=== PATIENT | male | born 1945 | race Caucasian/White ===

== ENCOUNTER → 2019-11-17 10:43 | Outpatient (BNVA) | payer MEDICARE, OTHER, SELFPAY | PROVIDERS: Family Provider Family Medicine; PCP Family Medicine; Referring Provider Nurse Practitioner Family; Visit Provider Orthopaedic Surgery | DX: M25.552 Pain in left hip (principal); M25.551 Pain in right hip | CPT/HCPCS: 73522 ==

== ENCOUNTER 2020-01-11 11:21 | Outpatient (CLI) | payer MEDICARE, OTHER, SELFPAY ==
--- NOTE | 2020-01-11 11:30 | CT_ITS ---
WS: [id number] CT CHEST, ABDOMEN AND PELVIS WITH CONTRAST HISTORY: RESTAGING, MALIGNANT NEOPLASM OF THE PENIS TECHNIQUE: Contiguous 5 mm axial imaging performed through the chest, abdomen and pelvis with IV cont rast, oral contrast has been provided. Coronal and sagittal reformats chest. Coronal and sagittal ref ormats through the abdomen and pelvis. All CT scans at [facility] use at least one of the se dose optimization techniques: automated exposure control; mA and/or kV adjustment per patient size (includes targeted exams where dose is matched to clinical indication); or iterative reconstruction. CONTRAST: Omnipaque 300; 95 mL IV. DLP: 3383.93 mGycm COMPARISON: 04/21/[address]: Mild peripheral interstitial thickening throughout both lungs. No pneumonia. Normal vascula ture. Mild bronchiectasis medial RIGHT upper lobe. No pleural effusion or pericardial effusion. Heart size is normal. Moderate coronary artery atherosclerosis. No mediastinal or hilar adenopathy. Abdomen CT: Hepatic steatosis. No hepatic mass. Normal vasculature. Gallbladder, spleen, pancreas and adrenal glands are negative. No bile duct dilatation. Very mild bilateral perinephric stranding. No mass or obstruction. Infrarenal abdominal aortic aneurysm measures 3.5 cm. There is a moderate amount of thrombus in the posterior aneurysm similar to the prior study. No significant progression of the aneurysm. No adenopathy or fluid in the abdomen. The appendix is visualized and normal. No GI tract obstruction . Pelvic CT: Garrison catheter present in the urinary bladder. No ascites within the pelvis. No adenopathy . No inguinal lymph nodes. Numerous surgical clips are noted at the LEFT groin and postsurgical ochoa es. Urinary bladder is not distended. No osteoblastic or osteolytic bone disease. Severe bilateral hip joint arthritis. Complete loss of the joint space on the RIGHT with remodeling o f the femoral head and neck and large subchondral cystic changes. Similar osteoarthritic changes on t he LEFT but to a lesser extent. No osteoblastic or osteolytic disease. L4 anterolisthesis by 10 mm due to bilateral pars defects. Mild RIGHT convex curvature thoracic spine . Remote healed rib fractures in the mid lateral LEFT thorax. CT/CT chest abd pel w con* IMPRESSION: 1. No evidence of metastatic disease to the chest, abdomen or pelvis. 2. Very mild interstitial thickening throughout both lungs. No pneumonia. 3. Stable infrarenal abdominal aortic aneurysm at 3.5 cm with intraluminal thr ombus. 4. Severe bilateral hip joint arthritis, RIGHT greater than LEFT. 5. L4 anterolisthesis by 10 mm with bilateral pars defects.
[2020-01-11] MEDS: iohexol 300 mg/mL 50 mL Btl PO ×2 (11:54→13:09)
[2020-01-11 13:16] LABS: Blood Urea Nitrogen 15 mg/dL (8-23)
[2020-01-11] MEDS: iohexol 300 mg/mL 100 mL Btl IV (13:27)
== END 2020-01-11 11:22 | disposition home or self-care (01) ==
LOC: RADWPI 11:24
PROVIDERS: Family Provider Family Medicine; PCP Family Medicine; Visit Provider Radiology Radiation Oncology
DX: C60.9 Malignant neoplasm of penis, unspecified (principal); I71.4 Abdominal aortic aneurysm, without rupture; M16.0 Bilateral primary osteoarthritis of hip
CPT/HCPCS: 71260; 74177; 82565; 84520; Q9967

== ENCOUNTER 2020-01-15 09:40 | Outpatient (CLI) | payer MEDICARE, OTHER, SELFPAY ==
--- NOTE | 2020-01-15 12:38 | ONCRAD EPV_ITS ---
Radiation Oncology Established Patient Visit Patient: Iglesia Hannah MR#: [id number] : 1945 Age: 75 Sex: Male Dictated by: Dr. Srinivasa Daley Date of Service: 01/15/2020 Referring Physician(s) : Dr. Abel Moncada Diagnosis: C60.2 - Malignant neoplasm of body of penis, Diagnosed 01/25/2017 (Active) C60.9 - Malignant neoplasm of penis, unspecified, Diagnosed 10/09/2016 (Active) Stage IV, T3, pN3, M0 Radiotherapy to Date: Course: C1, Treatment Site: PENECTOMY SITE, Ref. ID: PENECTOMY SITE, Energy: 9E, Dose/Fx (cGy): 180, #Fx: , Dose Correction (cGy): 0, Total Dose (cGy): 4,500, Start Date: 02/03/2017, End Date: 03/12/2017, Elapsed Days: 37 Treatment Site: PEL PTV46.8, Ref. ID: PELVIS PTV46.8, Energy: 6X, Dose/Fx (cGy): 180, #Fx: , Dose Correction (cGy): 0, Total Dose (cGy): 4,680, Start Date: 02/03/2017, End Date: 03/16/2017, Elapsed Days: 41 Treatment Site: PEL PTV60.8, Ref. 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 In follow up today, the patient reports that he has a permanent Garrison catheter changed monthly by his urologist, no fevers/chills, no abdominal pain, no diarrhea, and no nausea/vomiting. His most recent CT scan of the chest/abd/pelvis (01/11/20) is negative for radiographic concern for metastasis or recurrence. Current Medications: Atorvastatin Calcium, c 1000, hydrocodone-Acetaminophen, levothyroxine Sodium, lisinopril, meloxicam, metoprolol Succinate ER, omega-3 Fatty Acids, proscar, tamsulosin HCl. Allergies: Diclofenac and Chantix Starting Month Juanjo. Current Complaints / Review of Systems: Constitutional - Complains of moderate fatigue. Denies lack of appetite, fever, night sweats and change in weight. Eyes - Complains of blurred vision in the right eye related to a cataract. Denies double vision. ENMT - Complains of tinnitus. Denies dysphagia, ear pain, mouth dryness, stomatitis and altered taste. Neck - Denies neck pain. Integumentary - Denies rash. Cardiovascular - Denies arrhythmias, chest pain and edema. Respiratory - Complains of cough occasionally. Complains of dyspnea associated with normal activity. Complains of wheezing and happens with laying down at night. Gastrointestinal - Denies abdominal pain, constipation, diarrhea, heartburn / dyspepsia, melena / GI bleeding, nausea and vomiting. Genitourinary (M) - Complains of hematuria occasionally which is specks. Has a permanent catheter. Musculoskeletal - Complains of joint pain both hips, lower back, and hands and muscle weakness in the lower extremity. Denies bone pain. Neurologic - Complains of abnormal gait due to hip pain. Denies dizziness and headaches. Endocrine - Denies diabetes and thyroid disease. Hematologic/Lymphatic - Denies tender or enlarged lymph nodes.. Vital Signs: Performed on 01/15/2020 10:55 AM BMI - 36.583 kg/m2 (high), Height - 71.50 in, Weight - 266.0 lbs, Temperature - 96.8 f, Pulse - 75, Respiration - 20, O2 Sat - 96 %, Pain - 5 and BP - 104/ 69 mm(hg). Physical Exam: General: Alert and oriented x 3. No acute distress. HEENT: Normocephalic, atraumatic. Extraocular Movements Intact: Pupils Equal, Round, Sclerae anicteric. NECK: Supple without supraclavicular or jugular lymphadenopathy. LUNGS: Clear to auscultation bilaterally without rales, rhonchi or wheeze. HEART: Regular rate and rhythm, normal S1 and S2 without murmur, gallop or rub. MUSCULOSKELETAL: No tenderness or percussion pain over the axial skeleton, scapulae or pelvis. ABDOMEN: Soft, nontender, nondistended without masses or organomegaly. Bowell sounds are present. Lymphatics: No inguinal adenopathy. NEUROLOGIC: Cranial nerves II ???XII are grossly intact. Normal sensation, strength 5/5 in all extremities, normal gait, no ataxia. Performance Status: 2 - Ambulatory/capable of all self-care, unable to perform any work activities. Up and about more than 50% of waking hours. (ECOG) Lab: None pending. Pathology: Primary, c60.2 - malignant neoplasm of body of penis, Diagnosed 01/25/2017 (active) and Primary, c60.9 - malignant neoplasm of penis, unspecified, Diagnosed 10/09/2016 (active) stage iv, t3, pn3, m0. 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 The patient is nearly three years out from therapy and he has no current clinical or radiographic concerns for disease recurrence or metastasis. His last CT of the chest, abd, pelvis was completed 01/11/2020. Plan, follow up in 6 months for repeat history and physical exam. Future surveillance imaging to be done as clinically prudent. Signed by: 01/15/2020 12:37:52 PM <<Signature on File>> CPT Code: CPT Code:
== END 2020-01-15 09:41 | disposition home or self-care (01) ==
LOC: ONCMED 09:45
PROVIDERS: Family Provider Family Medicine; PCP Family Medicine; Visit Provider Radiology Radiation Oncology
DX: C60.2 Malignant neoplasm of body of penis (principal); J44.9 Chronic obstructive pulmonary disease, unspecified; E78.00 Pure hypercholesterolemia, unspecified; I10 Essential (primary) hypertension; M19.90 Unspecified osteoarthritis, unspecified site
CPT/HCPCS: 99213; G0463

== ENCOUNTER 2020-01-30 09:09 | Outpatient (CLI) | payer MEDICARE, OTHER, SELFPAY ==
--- NOTE | 2020-01-30 09:50 | NMCV_ITS ---
NM abhay perf SPECT r/s* [id number] Iglesia Hannah Age: 75 Gender: M : 1945 Exam Date: 01/30/2020 10:19 Ordering Phys: Ming Flores DO Technologist: JONATHON Fan Exam Location: [facility] Indications: SOB, CAD STRESS TEST Please see separate stress test report in [facility] for full findings IMAGE PROTOCOL Rest/Stress 1 Lexiscan Day Radiopharmaceutical Dose (mCi) Administration Site Administered by Rest: Tc-99m 10.3 IV JONATHON Barrera Sestamibi Stress:Tc-99m 32.9 IV JONATHON Fan Sestamikvng Rest: 30-Jan-2020 60 Discovery 630 Stress: 30-Jan-2020 45 Discovery 630 0.4mg Lexiscan. Supine position only as patient was unable to lay prone. SPECT RESULTS Technical Quality: Good Raw Data Analysis: Normal Image Corrections: No attenuation or motion correction applied Summed Stress Score: 11 Summed Rest Score: 15 Summed Difference Score: 0 PERFUSION FINDINGS Moderate area of moderate to severely decreased tracer uptake in the basal mid and apical inferior, basal and mid inferolateral, apical lateral and LV apex. No significant reversibility was noted in these regions addressed. FUNCTIONAL RESULTS (calculated via Gated SPECT) Stress Image LV EF (%): 51 Stress EDV (mL):182 TID: 1.16 Stress ESV (mL):90 FUNCTIONAL FINDINGS: 1. Myocardial perfusion imaging revealing moderate area of persistent decreases uptake in the inferior, inferolateral and apical regions, suggestive of myocardial scarring in the distribution of the right coronary artery/circumflex artery. 2. Normal LV ejection fraction 51%. 3. LV wall motion analysis revealing diffuse hypokinesia of the LV apex. 4. Mildly dilated LV cavity with an end-systolic volume of 90 mL. 5. Slightly elevated transient ischemic dilatation ratio of 1.16, may suggest endocardial ischemia. But the positive predictive value this finding is limited. Clinical correlation is recommended IMPRESSIONS Dr Lidya Rojas MD [facility] (Electronically Signed) Final Date: 30 January 2020 13:58 S
[2020-01-30 09:51] VITALS: BMI 37.2
--- NOTE | 2020-01-30 11:00 | ECG_ITS ---
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 Interpretive Statements NAME OF STUDY: LEXISCAN SESTAMIBI STRESS TEST INDICATION: Chest Pain, PROCEDURE: At the baseline, the EKG revealed normal sinus rhythm with first-degree AV block. Possible old inferolateral myocardial infarction. The baseline blood pressure was 125/77 mm Hg with a heart rate of 76 beats/min. Lexiscan was infused over a period of 20 seconds. A total of 0.4 milligrams of Lexiscan was infused. The stress phase was continued for a total of 5 minutes. Heart rate at the end of the stress phase was 80 with a blood pressure 141/76. The EKG at the peak infusion revealed occasional PVCs with no other significant changes . Sestamibi was injected 20 seconds after the Lexiscan infusion. Blood pressure at the end of the recovery phase was 128/76 with a heart rate of 71 per minute. CONCLUSION: 1. No significant EKG changes with the LexiScan infusion 2. No LexiScan induced chest pain .occasional Lexiscan induced with PVCs were noted . 3. Normal blood pressure and heart rate response 4. Sestamibi/sestamibi perfusion scan pending; see separate report. Electronically Signed On 01-30-2020 13:40:26 CDT by Lidya Rojas M.D. [id number]
[2020-01-30 11:26] VITALS: BP 117/84; PULSE 80
[2020-01-30] MEDS: regadenoson 0.4 Mg/5 ml Syringe IVP (11:26)
== END 2020-01-30 09:10 | disposition home or self-care (01) ==
PROVIDERS: Family Provider Family Medicine; PCP Family Medicine; Visit Provider Internal Medicine Cardiovascular Disease
DX: R06.02 Shortness of breath (principal); R07.9 Chest pain, unspecified; I25.10 Atherosclerotic heart disease of native coronary artery without angina pectoris
CPT/HCPCS: 78452; 93017; A9500; J2785

== ENCOUNTER → 2020-03-22 08:53 | Outpatient (BNVA) | payer MEDICARE, OTHER, SELFPAY | PROVIDERS: PCP Family Medicine; Visit Provider Internal Medicine | DX: Z11.59 Encounter for screening for other viral diseases (principal) | CPT/HCPCS: 87635 ==

== ENCOUNTER 2020-03-25 13:19 | Observation (INO) | payer MEDICARE, OTHER, SELFPAY ==
[2020-03-21 10:24] VITALS: BMI 37.2
--- NOTE | 2020-03-21 10:31 | ECG_ITS ---
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 Measurements Intervals [place] Rate: 69 P: 37 OK: 240 QRS: 49 QRSD: 86 T: 45 QT: 414 QTc: 444 Interpretive Statements SINUS RHYTHM WITH FIRST DEGREE AV BLOCK POSSIBLE ANTERIOR MYOCARDIAL INFARCTION [30 ms Q WAVE IN V3/V4, OR R < 0.2 mV IN V4], OF INDETERMINATE AGE POSSIBLE INFERIOR MYOCARDIAL INFARCTION [30 ms Q WAVE IN II/aVF], PROBABLY OLD Compared to ECG 10/24/2018 16:48:31 No significant changes Electronically Signed On 03-21-2020 20:24:54 CDT by Heidi Cooney M.D. [id number]
[2020-03-21 11:06] LABS: Basophils # 0.1 10^3/uL (0.0-0.1); Basophils % 0.6 %; Eosinophils # 0.1 10^3/uL (0.0-0.8); Eosinophils % 1.6 %; Hematocrit 41.1 % (42.0-52.0); Hemoglobin 13.8 g/dL (11.7-16.6); Lymphocytes % 24.4 %; Mean Corpuscular HGB Conc 33.6 g/dL (30.0-36.0); Mean Corpuscular Hemoglobin 30.9 pg (28.0-34.0); Mean Corpuscular Volume 92.2 fL (80-94); Mean Platelet Volume 11.2 fL (7.4-10.4); Monocytes # 0.8 10^3/uL (0.2-0.9); Monocytes % 10.3 %; Neutrophils # 5.11 10^3/uL (1.8-7.7); Neutrophils % 62.5 %; Nucleated Red Blood Cells % 0 %; Platelet Count 114 10^3/cmm (130-400); Red Blood Count 4.46 10^6/uL (4.1-5.3); Red Cell Distribution Width 15.2 % (12.1-15.1); White Blood Count 8.2 10^3/uL (4.0-10.0)
--- NOTE | 2020-03-21 11:08 | ANES.PREANE2 ---
Pre-Anesthetic Assessment Pre-Anesthetic Assessment: Height/Weight: Height 1.8 m Weight 121.109 kg Preop Diagnosis: Osteoarthritis Proposed Procedure: Operation Date: 03/25/20 09:30 Proposed Procedures p Total Hip Arthroplasty 90526 M16.11(Right) - Caleb Reynaga MD Familial anesthetic complications: None Social: Social History: Tobacco and No alcohol Exam: Pre-Anes Outpt Exam: alert, oriented x 3, clear to auscultation bilaterally and regular rate & rhythm Airway: Cervical ROM: WNL MP: 2 Dentition: Other (missing teeth (poor dentition)) Pulmonary: Pulmonary: COPD (2 L NC prn - couple times a week) CV/HEM: CV/HEM: CAD (2 stents - last one placed jul 2010), HTN and WI (X3) Metabolic: Metabolic: Hyperlipidemia and Morbid obesity Musc/skel: Musc/skel: OA/DJD Neuropsych: Neuropsych: Neuropathy Anesthetic Plan: ASA status: 3 Anesthesia: General Risk of > 500 ml blood loss (7ml/kg in children): No PFSH Anesthesia PFSH: Medical History Chronic indwelling Garrison catheter Coronary artery disease History of penile cancer Hypertension Hyperthyroidism Other urethral stricture, male, meatal Surgical History History of penectomy S/P tonsillectomy Family History Father Cancer Colon Mother Cancer Colon Social History Smoking and tobacco status: current every day smoker Alcohol intake: never Marital status: Current occupational status: retired Data Anesthesia CBC & Chem 7: 03/21/20 10:50 Other Labs: Laboratory Results - last 48 hr 03/21/20 10:50 WBC 8.2 RBC 4.46 Hgb 13.8 Hct 41.1 L MCV 92.2 MCH 30.9 MCHC 33.6 RDW 15.2 H Plt Count 114 L MPV 11.2 H Neut % (Auto) 62.5 Lymph % (Auto) 24.4 Turner % (Auto) 10.3 Eos % (Auto) 1.6 Baso % (Auto) 0.6 Neut # (Auto) 5.11 Lymph # (Auto) 2.0 Turner # (Auto) 0.8 Eos # (Auto) 0.1 Baso # (Auto) 0.1 Nucleated RBC % (auto) 0 Nucleated RBCs # 0.0 Cardiac Studies: No Data to Display
[2020-03-25] VITALS (22 sets, daily range): BP systolic 101–140; BP diastolic 68–88; PULSE 57–82; RESP 12–97; TEMP 36.1–37.1; O2SAT 89–98
[2020-03-25] MEDS: sodium chloride 0.9% 1,000 ML 30 ML IV (07:40)
--- NOTE | 2020-03-25 07:59 | P.ANESUD_ITS ---
Pre-Anesthetic Update Pre-Anesthetic Assessment: Date of Surgery/Procedure: 03/25/20 Preop Precious gnosis: Osteoarthritis right hip Proposed Procedure: Operation Date: 03/25/20 09:30 Proposed Procedures p Total Hip Arthroplasty 05399 M16.11(Right) - Caleb Reynaga MD Any changes to Pre-Anesthetic Assessment?: No Last Intake: Intake Last Liquid Date 03/24/20 Last Liquid Time 22:30 Last Solid Date 03/24/20 Last Solid Time 22:30 Vitals: Pulse Rate 82 03/25/20 07:26 Pulse Rhythm 03/25/20 07:26 Pulse Strength 3+ Normal 03/25/20 07:26 Respiratory Rate 18 03/25/20 07:26 Blood Pressure 125/82 03/25/20 07:26 Blood Pressure Marcia n 96 03/25/20 07:26 Pulse Oximetry 98 03/25/20 07:26 Oxygen Delivery Me thod 03/25/20 07:26 Exam: Pre-Anes Outpt Exam: alert, oriented x 3, clear to auscultation bilaterally and regular rate & rhythm Cardiac Studies: No Data to Display
--- NOTE | 2020-03-25 10:02 | W.PM.OPSUD ---
Surgery/Procedure H&P Update DATE OF PROCEDURE: March 25, 2020 DATE H&P PERFORMED: 03/14/20 PREOP DIAGNOSIS: Osteoarthritis right hip PLANNED PROCEDURE: Operation Date: 03/25/20 09:30 Proposed Procedures p Total Hip Arthroplasty 22724 M16.11(Right) - Caleb Reynaga MD
[2020-03-25] MEDS: tranexamic acid 1,000 mg/10mL SDV 1000 MG IRRIGATION (10:53)
--- NOTE | 2020-03-25 12:05 | XR_ITS ---
WS: [id number] EXAM: RIGHT HIP: AP VIEW DATE OF EXAMINATION: 03/25/2020, 1214 hours COMPARISON: AP pelvis and right hip examination from 11/17/2019. HISTORY: Patient is 75 years old with new right total hip arthroplasty. FINDINGS: Since the earlier examination there has been interval placement of a noncemented 2 component right to cherise hip arthroplasty. No hardware complication is demonstrated. No bony malalignment. No acute bony a bnormality seen. Air in the soft tissues correlates with an open procedure. XR/XR hip RT 1V wo/w pel [id number] IMPRESSION: New right total hip arthroplasty without acute abnormality.
--- NOTE | 2020-03-25 12:06 | P.OP_ITS ---
Operative Report Date of procedure: March 25, 2020 Pre-op Diagnosis: Osteoarthritis right hip Post-op diagnosis: same Post-op Findings: Same Procedure Done: Right total hip arthroplasty Implants: 1) Houghton 58 mm ADM acetabular shell 2) Size 10 Houghton 132 degree neck angle SecureFit Max stem 3} 28 mm standard femoral head 4} Restorationa ADM X3 insert Pathology: none sent Surgeon: Caleb Reynaga Anesthesia: General Estimated blood loss (mL): 200 Complications: None Findings: Patient had severe end-stage osteoarthritis of the right hip Condition: stable Disposition: PACU Procedure: The patient was taken to the operating room and anesthesia provided by the anesthesia service. The patient was placed in the lateral position on a beanbag. A timeout was performed. The patient was draped in the usual fashion. A 15 cm long incision was made beginning just proximal to the greater trochanter and extending posteriorly to a point just distal to the trochanter on the posterior border of the trochanter. Dissection was carried down with elect rocautery through the subcutaneous fat to the fascia jason which was divided proximally and distally with curved scissors. The anterior two thirds of the gluteus medius and minimus were elevated off the hip with electrocautery. The capsule was divided in a H-like fashion. The hip was dislocated and a neck cut made just above the level of the lesser trochanter. Exposure of the acetabulum was facilitated with the acetabular retractors. Remnants of labrum and peripheral osteophytes were removed with electrocautery and a rongeur. A reamer 2 mm under the size the femoral head was utilized to ream medially to the base of the palm and are. Reaming was then increased in 1 mm intervals until a healthy rim a trabecular bone was encountered. A trial ADM cup was placed and its position marked with electrocautery In the acetabulum. A final was press-fit into place. Attention was then focused on the femur. Sequential reaming was done under power until cortical chatter was encountered. Broaching was then accomplished until a stable broach size was obtained. A trial reduction with the head and neck provided excellent stability. The wound was irrigated with saline and antibiotic solution. The final Houghton SecureFit Max stem was press-fit into place. The femoral head was placed and the hip was reduced. The hip was brought through range of motion and found to be free of impingement and stable. The anterior capsule was reapproximated with 1 Ethibond. The gluteus medius and minimus were repaired through bone with 5 Ethibond and reinforced with 1 Ethibond. The fascial jason was closed with 1 Ethibond. The subcutaneous tissue closed with 2-0 Vicryl. The skin was closed with skin kateryna. A sterile dressing was applied. The patient was taken to the recovery room in an a bduction pillow in stable condition.
--- NOTE | 2020-03-25 12:26 | PM.PACU ---
PACU note Post-Anesthesia Exam: awake and vital signs stable Disposition: admitted
[2020-03-25] MEDS: fentaNYL 50 mcg/mL INJ 2mL IVP ×2 (13:01→13:06)
[2020-03-25] MEDS: HYDROcodone-acetaminophen 7.5-325 mg Tablet 1 TAB PO ×2 (15:22→22:00)
[2020-03-25] MEDS: sodium chloride 0.9% 1,000 ML 100 ML IV (15:22)
[2020-03-25] MEDS: chlorhexidine gluconate 0.12% Btl 473 mL 30 ML MUCOUS MEM ×2 (15:23→22:01)
[2020-03-25] MEDS: sennosides-docusate Tablet 2 TAB PO (17:06)
[2020-03-25] MEDS: calcium carbonate 500 mg Chew Tablet 1000 MG PO (17:07)
[2020-03-25] MEDS: mupirocin oint 22 gm 1 APPLIC TOPICAL (17:07)
[2020-03-25] MEDS: iron polysaccharide complex 150 mg Capsule PO (17:08)
[2020-03-26] VITALS (12 sets, daily range): BP systolic 104–143; BP diastolic 64–91; PULSE 69–104; RESP 18–19; TEMP 36.8–39.2; O2SAT 92–97
[2020-03-26] MEDS: sodium chloride 0.9% 1,000 ML 100 ML IV (01:39)
[2020-03-26] MEDS: oxyCODONE-APAP 5-325 mg Tablet 1 TAB PO ×2 (01:55→08:24)
[2020-03-26 05:26] LABS: Hemoglobin 12.4 g/dL (11.7-16.6)
[2020-03-26] MEDS: HYDROcodone-acetaminophen 7.5-325 mg Tablet 1 TAB PO ×2 (06:01→17:59)
[2020-03-26] MEDS: aspirin 81 mg EC Tablet PO (08:25)
[2020-03-26] MEDS: omega-3 fatty acids 1,000 mg Capsule 1000 MG PO (08:25)
[2020-03-26] MEDS: finasteride 5 mg Tablet PO (08:25)
[2020-03-26] MEDS: calcium carbonate 500 mg Chew Tablet 1000 MG PO ×2 (08:25→17:43)
[2020-03-26] MEDS: atorvastatin 40 mg Tablet PO (08:25)
[2020-03-26] MEDS: metoprolol tartrate 50 mg Tablet PO (08:26)
[2020-03-26] MEDS: mupirocin oint 22 gm 1 APPLIC TOPICAL ×2 (08:26→17:50)
[2020-03-26] MEDS: sennosides-docusate Tablet 2 TAB PO ×2 (08:26→17:43)
[2020-03-26] MEDS: tamsulosin 0.4 mg Capsule PO (08:27)
[2020-03-26] MEDS: iron polysaccharide complex 150 mg Capsule PO ×2 (08:27→17:43)
[2020-03-26] MEDS: mupirocin oint 22 gm 1 APPLIC NASAL ×2 (08:27→18:24)
[2020-03-26] MEDS: cholecalciferol (vitamin D3) 1,000 unit Tablet 1000 UNIT PO (08:27)
[2020-03-26] MEDS: multivitamin therapeutic Tablet 1 TAB PO (08:27)
[2020-03-26] MEDS: chlorhexidine gluconate 0.12% Btl 473 mL 30 ML MUCOUS MEM ×3 (08:28→17:45)
[2020-03-26] MEDS: morphine 4 mg/mL SDV 1 mL 2 MG IVP (11:56)
--- NOTE | 2020-03-26 12:55 | ANE.PACU2 ---
Inpatient post-anesthesia follow up: Airway intact: Yes Vital signs: Temperature 98.3 F Pulse Rate 84 Respiratory Rate 18 Blood Pressure 104/64 Pulse Oximetry 94 Oxygen Delivery Me thod [ Room Air Current Rate & Del loren] Oxygen Delivery Me thod Nasal Cannula Oxygen Flow Rate 2 Fraction of Inspir ed Oxygen Hydration adequate: Yes Nausea and vomiting: No Pain level: 5 Mental status: Baseline
--- NOTE | 2020-03-26 14:44 | P.PN_ITS ---
Subjective Subjective: Interval history: Patient reports pain is better. Back pain improved when out of bed. Vitals/I&O/Wt Last Vital Signs Temp 98.3 F 03/26/20 11:22 Pulse 84 03/26/20 11:22 Resp 18 03/26/20 11:56 BP 104/64 03/26/20 11:22 Pulse Ox 94 03/26/20 11:56 03/25/20 03/26/20 03/26/20 22:59 06:59 14:59 Intake Total 50 / 1410 1050 / 2460 770 / 770 Output Total 1750 / 2800 1875 / 4675 Balance -1700 / -1390 -825 / -2215 770 / 770 Physical Exam Narrative: EXAM NARRATIVE: Able to walk to the door and back this morning. R ight hip dressing clean and dry. Data : 03/26/20 04:35 A&P Assessment and plan (1) Status post right hip replacement: Patient had a larger male and progress with therapy a bit slower. Will discharge home when fully ambulatory. Possibly tonight or more likely tomorrow morning Status: Acute (2) Osteoarthritis of right hip: Status: Acute Attestations Medical Necessity Statement*: Patient with insufficient amatory ability for discharge home at present time Coding Level of Care Code Acute Service Mechanic for Salena Epstein Diagnoses Status post right hip replacement Z96.641 Osteoarthritis of right hip M16.11
[2020-03-26] MEDS: acetaminophen 325 mg Tablet 650 MG PO (20:46)
[2020-03-27] MEDS: chlorhexidine gluconate 0.12% Btl 473 mL 30 ML MUCOUS MEM ×3 (00:01→16:02)
[2020-03-27] MEDS: HYDROcodone-acetaminophen 7.5-325 mg Tablet 1 TAB PO ×2 (02:08→12:30)
[2020-03-27 03:00] VITALS: BP 120/76; PULSE 81; RESP 18; TEMP 37.5; O2SAT 91
[2020-03-27 07:00] VITALS: BP 128/76; PULSE 98; RESP 18; TEMP 37.3; O2SAT 93
[2020-03-27 08:32] VITALS: PULSE 75; RESP 18; O2SAT 94
--- NOTE | 2020-03-27 10:00 | PC.NURSE ---
Methenamine not administered due to home med not available. Pt's took meds home with her.
[2020-03-27] MEDS: calcium carbonate 500 mg Chew Tablet 1000 MG PO (10:24)
[2020-03-27] MEDS: tamsulosin 0.4 mg Capsule PO (10:25)
[2020-03-27] MEDS: finasteride 5 mg Tablet PO (10:25)
[2020-03-27] MEDS: sennosides-docusate Tablet 2 TAB PO (10:25)
[2020-03-27] MEDS: atorvastatin 40 mg Tablet PO (10:25)
[2020-03-27] MEDS: omega-3 fatty acids 1,000 mg Capsule 1000 MG PO (10:26)
[2020-03-27] MEDS: aspirin 81 mg EC Tablet PO (10:26)
[2020-03-27] MEDS: cholecalciferol (vitamin D3) 1,000 unit Tablet 1000 UNIT PO (10:26)
[2020-03-27] MEDS: metoprolol tartrate 50 mg Tablet PO (10:26)
[2020-03-27] MEDS: multivitamin therapeutic Tablet 1 TAB PO (10:26)
[2020-03-27] MEDS: iron polysaccharide complex 150 mg Capsule PO (10:26)
[2020-03-27 11:00] VITALS: BP 126/74; PULSE 78; RESP 20; TEMP 37.1; O2SAT 98
[2020-03-27] MEDS: mupirocin oint 22 gm 1 APPLIC NASAL (12:32)
--- NOTE | 2020-03-27 13:21 | PM.DCS ---
Discharge Providers Date of Admission: 03/25/20 13:19 Date of Discharge: March 27, 2020 Attending Provider at Admission: Caleb Reynaga MD Attending Provider at Discharge: Caleb Reynaga MD Primary Care Provider: Ming Flores DO Diagnoses at Discharge Discharge Diagnosis (1) Status post right hip replacement: Status: Acute (2) Osteoarthritis of right hip: Status: Acute Reason for Visit Reason for Visit: Primary osteoarthritis of right hip Hospital Course Hospital Course: Mr. Hannah is a 75-year-old male with end-stage osteoarthritis of both hips admitted for an elective right total hip arthroplasty. Postoperatively he was slower with therapy attributable to his open weight and severity of osteoarthritis in both hips. He made steady progress and by the second postoperative day was ambulating 70 feet and felt ready for discharge. He is managed with aspirin and sequential compression dressings for DVT prophylaxis. Physical Exam Narrative: EXAM NARRATIVE: On the day of discharge the hip incision was clean. The incision was free of drainage. They had no particular swelling about the thigh or distal. No distal neurovascular deficits were noted. Discharge Data Data Completed and Pending: Completed Studies During Hospitalization Category Date Time Status XR hip RT 1V wo/w pel [id number] Routine Exams 03/25/20 12:05 Completed Vitals: Last Vital Signs Temp 98.7 F 03/27/20 11:00 Pulse 78 03/27/20 11:00 Resp 20 H 03/27/20 11:00 BP 126/74 03/27/20 11:00 Pulse Ox 98 03/27/20 11:00 Discharge Plan Discharge Patient Disposition: Home Condition: Stable Prescriptions: New oxycodone-acetaminophen 5-325 mg Tablet 1 tab PO Q4H PRN (Reason: Severe Pain) Qty: 40 RF: 0 Continued finasteride 5 mg tablet 5 mg PO DAILY RF: 0 cholecalciferol (vitamin D3) 2,000 unit tablet 2,000 unit PO DAILY RF: 0 atorvastatin 40 mg tablet 40 mg PO DAILY RF: 0 tamsulosin 0.4 mg capsule 0.4 mg PO DAILY RF: 0 omega-3 fatty acids 1,000 mg capsule 1,000 mg PO DAILY RF: 0 aspirin 81 mg tablet,delayed release (DR/EC) 81 mg PO DAILY RF: 0 hydrocodone-acetaminophen [[place]] 7.5-325 mg tablet 1 tab PO Q6H PRN (Reason: pain) 14 Days Qty: 40 RF: 0 methenamine hippurate 1 gram tablet 1 gm PO BID Qty: 60 RF: 12 mupirocin 2 % ointment 1 applic TOPICAL BID Qty: 22 RF: 0 meloxicam 15 mg Tablet 15 mg PO DAILY RF: 0 metoprolol tartrate 50 mg Tablet 50 mg PO DAILY RF: 0 Discharge Orders: Discharge Order (Routine); Ordered 03/27/20 Ordered By: Caleb Reynaga Other Ambulatory Orders: DME: Walker (Order) Location: None Selected Ordered By: Caleb Reynaga Referrals: [facility] ([facility]) [Outside] Discharge Diet: Advance as tolerated Discharge Activity: Use walker/crutches as instructed Activity Restrictions/Additional Instructions: May shower once incisions completely free of drainage. Discontinue right hip dressing in 24-48 hours. Replaced dressings as needed. Take Celebrex twice a day for the next 15 days for pain , discontinue other anti-inflammatories take oxycodone for breakthrough pain. Exercises per home health physical therapy. May discontinue abduction pillow Discharge Attestations Time Spent in Discharge Care*: other Quality Metrics Clinical Quality Measures During this hospital stay, did patient experience: None Coding Level of Care Code Acute Atomic Process Engineer for Salena Epstein Diagnoses Status post right hip replacement Z96.641 Osteoarthritis of right hip M16.11
--- NOTE | 2020-03-27 14:05 | PC.RESP ---
Smoking Cessation information sent to patient.
[2020-03-27 15:00] VITALS: BP 124/76; PULSE 64; RESP 20; TEMP 36.9; O2SAT 98
[2020-03-27 16:00] VITALS: RESP 18
[2020-03-27] MEDS: oxyCODONE-APAP 5-325 mg Tablet 1 TAB PO (16:00)
--- NOTE | 2020-03-27 16:05 | PC.NURSE ---
Pt has been ambulating in hallway several different times throughout the day with PT. Periguard administered late because of one session. Pt tolerating PT very well.
--- NOTE | 2020-03-27 16:45 | PC.NURSE ---
Pt given discharge instructions. Indicates understanding. Pt denies pain or needs at this time. Taken out to 's vehicle via WC. 2 nurse assist transfer to vehicle using walker. Pt tolerated well. denies pain or needs.
== END 2020-03-27 17:00 | disposition home or self-care (01) ==
LOC: MEDSURG 13:20
PROVIDERS: Anesthesiology; Admitting Provider Orthopaedic Surgery; PCP Family Medicine; Visit Provider Orthopaedic Surgery
PROC: (CPT 27130; principal; 2020-03-25 09:25)
DX: M16.0 Bilateral primary osteoarthritis of hip (principal); I25.10 Atherosclerotic heart disease of native coronary artery without angina pectoris; E03.9 Hypothyroidism, unspecified; I10 Essential (primary) hypertension; F17.200 Nicotine dependence, unspecified, uncomplicated
CPT/HCPCS: 27130; 12345; 36415; 73501; 85018; 85025; 93005; 96361; 96365; 96366; 97116; 97161; 97166; 97530; 97535; C1776; G0378; J0690; J1100; J1580; J2270; J2405; J2704; J2710; J3010; J3490; J7030

== ENCOUNTER → 2020-05-07 13:48 | Outpatient (BNVA) | payer MEDICARE, OTHER, SELFPAY | PROVIDERS: PCP Family Medicine; Visit Provider Orthopaedic Surgery | DX: Z96.641 Presence of right artificial hip joint (principal) | CPT/HCPCS: 73502 ==

== ENCOUNTER 2020-05-30 13:41 | Outpatient (RCR) | payer MEDICARE, OTHER, SELFPAY | END 2020-06-10 23:59 | disposition home or self-care (01) | LOC: MPT 13:41 | PROVIDERS: PCP Family Medicine; Referring Provider Orthopaedic Surgery; Visit Provider Orthopaedic Surgery | DX: Z47.1 Aftercare following joint replacement surgery (principal); Z96.641 Presence of right artificial hip joint | CPT/HCPCS: 97110; 97112; 97161 ==

== ENCOUNTER → 2020-06-18 10:53 | Outpatient (BNVA) | payer MEDICARE, OTHER, SELFPAY | PROVIDERS: PCP Family Medicine; Visit Provider Nurse Practitioner Family | DX: Z20.828 Contact with and (suspected) exposure to other viral communicable diseases (principal) | CPT/HCPCS: 87635 ==

== ENCOUNTER 2021-10-08 15:31 | Emergency (ER) | payer MEDICARE, OTHER, SELFPAY ==
[2021-10-08] VITALS (8 sets, daily range): BP systolic 103–185; BP diastolic 86–107; PULSE 68–85; RESP 16–26; TEMP 36.8; O2SAT 91–97; BMI 38.6
--- NOTE | 2021-10-08 17:08 | XRR_ITS ---
PROCEDURE INFORMATION: Exam: XR Chest Exam date and time: 10/08/2021 5:29 PM Age: 76 years old Clinical indication: Shortness of breath; Additional info: SOB TECHNIQUE: Imaging protocol: XR of the chest. Views: 1 view. COMPARISON: CT chest abd pel w con* 01/11/2020 1:23 PM FINDINGS: Lungs: Previously seen interstitial edema has nearly resolved. There are subtle predominantly linear opacities in both lung bases. Pleural spaces: No pleural effusion. Heart/Mediastinum: Unremarkable. No cardiomegaly. Bones/joints: Several chronic healed left inferolateral rib fractures. XR/XR chest 1V portable [id number] IMPRESSION: Subtle basilar opacities most likely representing scarring or minimal interstitial edema
--- NOTE | 2021-10-08 17:32 | ED_ITS ---
HPI - SOB/Dyspnea General: Chief Complaint: Shortness of Breath/Dyspnea Stated Complaint: Low Oxygen, weak Time Seen by Provider: 10/08/21 17:24 History of Present Illness: HPI Narrative: Mr. Hannah is a 76-year-old gentleman with significant past medical history of hypertension, hyperlipidemia, CAD, COPD with chronic hypoxic respiratory failure who presents to the emergency department due to chest discomfort. He reports symptoms have been ongoing for approximately 1 and half weeks. He initially had mostly congestion and mild shortness of breath and presented to his PCP. He was started on antibiotics though is unsure which one and has been taking them as prescribed. Despite this, he has continued to worsen. He describes pressure in the middle of his chest and heaviness with respirations. Intensity of symptoms is moderate. Course has been worsening. No other specific changes in health, exacerbating, or alleviating factors identified. Onset (ago): week(s) Timing: progressively worsening Severity: moderate Review of Systems General: Reports: 10 or more systems reviewed and unremarkable except in HPI and below PFSH ED PFSH: Medical History Bacteriuria Chronic indwelling Garrison catheter Coronary artery disease History of penile cancer Status post bilateral lymphadenectomy inguinal, total penectomy with perineal urethrostomy at the [facility]. Hypertension Hyperthyroidism Other urethral stricture, male, meatal Perineal urethrostomy with recurrent stricture currently managed with indwelling Garrison catheter. Surgical History History of penectomy S/P tonsillectomy Family History Father Cancer Colon Mother Cancer Colon Social History Smoking and tobacco status: current every day smoker Alcohol intake: never Marital status: Current occupational status: retired Physical Exam Const: COMMON NORMALS: alert GENERAL APPEARANCE: cooperative, well developed and ill appearing (Mildly) HENMT: COMMON NORMALS: normocephalic and atraumatic HEAD & SCALP: normocephalic and atraumatic THROAT: posterior oropharynx normal Eye: COMMON NORMALS: conjunctivae normal CONJUNCTIVA: Yes conjunctivae normal SCLERA: sclerae normal Neck/C-Spine: COMMON NORMALS: supple GENERAL: Yes trachea midline Resp: EFFORT & INSPECTION: Yes able to speak in complete sentences AUSCULTATION: wheezes expiratory wheezes and lower bilaterally and diminished lung sounds Cardio: COMMON NORMALS: regular rate and regular rhythm RATE: regular rate RHYTHM: regular rhythm GI: COMMON NORMALS: Soft to palpation PALPATION: Yes Soft to palpation and No Tenderness to palpation present (GI) PERCUSSION: normal to percussion Extremity: GENERAL: Yes normal exam except as noted and No edema Neuro: COMMON NORMALS: moves all extremities SENSORIUM/ORIENTATION: Yes alert and No Orientation impaired Psych: COMMON NORMALS: mental status grossly normal and Normal thought process present THOUGHT PROCESS: Normal thought process present Course ED course: - Patient was seen and evaluated by me at bedside - Patient placed on cardiac monitors, IV access obtained - Initial evaluation notable for exam as above - Labs and xrays personally interpreted by me - RT treatment and steroids given. Fluids given. - Labs notable for no leukocytosis, normal hemoglobin. Thrombocytopenia of unclear etiology which appears chronic. No acute electrolyte derangements. BNP is somewhat elevated though no overt signs of volume overload on clinical exam. Patient is flu positive. - Imaging notable for basilar opacities bilaterally which are mild. No pneumothorax or lobar consolidation. - Upon serial reexamination after treatment the patient was mildly improved - Based on patient history, evaluation, and testing as interpreted the most likely cause of the patient's condition is influenza a. - I believe that the patient's influenza he is likely cause for chest discomfort however the patient does need cardiology follow-up regarding underlying risk factors and consideration for further cardiac testing once no longer symptomatic from influenza. Additionally, the patient wears 2 L of oxygen at home and has COPD however is not on any daily medications for her COPD treatment or control. - The results of ED evaluation were discussed with the patient including prescriptions and/or symptomatic cares (if applicable) including appropriate and responsible use, followup plan, and return precautions. The patient verbalized understanding and felt safe for discharge. - Patient discharged in satisfactory condition. Note: Click bubbles or prepopulated angulo in note writing are used for assistance with data collection and billing and are inherently more limited than narrative and other text portions of this note. Please use narrative for additional clinical history and defer to narrative/free test for any case of contradictory information. If information appears in only free text or click bubble it should be considered present or absent as reported. Please contact note production underwriter for clarifications of clinical information or contradictory information. MDM is a brief summary, contradictory or erroneous seeming information should be clarified and full note should be reviewed. Vital Signs: Vital signs: Vital Signs Temperature 98.2 F 10/08/21 16:22 Pulse Rate 85 10/08/21 22:11 Respiratory Rate 19 H 10/08/21 22:11 Blood Pressure 153/93 10/08/21 22:11 Pulse Oximetry 94 10/08/21 22:11 MDM - SOB/Dyspnea Medical Decision Making 76-year-old gentleman presenting with shortness of breath and chest discomfort that did not improve with outpatient treatment. Patient found to have influenza. He is at his baseline home oxygen requirement and mildly improved with treatment. The exact time of influenza onset versus combination/multifactorial respiratory illness is unclear and given patient's comorbidities I will treat for COPD exacerbation and influenza. Additionally the patient is not currently on daily medications for COPD despite home oxygen use and requires follow-up with pulmonology. I will refer him for further cardiac testing once influenza symptoms improve and cardiology follow- up. Patient was noted to have frequent PVCs on telemetry during ED visit. Satisfactory for outpatient management. Medical Records I reviewed the patient's medical records. Lab Data I reviewed the patient's lab results. : 10/08/21 17:27 10/08/21 17: Labs/Radiology: Radiology Impressions Chest X-Ray 10/08/21 17:08 IMPRESSION: Subtle basilar opacities most likely representing scarring or minimal interstitial edema Laboratory Results WBC 8.8 10^3/uL (4.0-10.0) 10/08/21 17: RBC 4.82 10^6/uL (4.1-5.3) 10/08/21 17: Hgb 14.9 g/dL (11.7-16.6) 10/08/21: Hct 44.0 % (42.0-52.0) 10/08/21: MCV 91.3 fl (80-94) 10/08/21 17: MCH 30.9 pg (28.0-34.0) 10/08/21 17: MCHC 33.9 g/dL (30.0-36.0) 10/08/21 17: RDW 15.1 % (12.1-15.1) 10/08/21 17: Plt Count 116 10^3/cmm (130-400) L 10/08/21 17: MPV 11.4 fL (7.4-10.4) H 10/08/21 17: Neut % (Auto) 66.4 % 10/08/21 17: Lymph % (Auto) 21.8 % 10/08/21 17: Chaves % (Auto) 10.1 % 10/08/21 17: Eos % (Auto) 0.8 % 10/08/21 17: Baso % (Auto) 0.3 % 10/08/21 17: Neut # (Auto) 5.85 10^3/uL (1.8-7.7) 10/08/21: Lymph # (Auto) 1.9 10^3/uL (0.8-4.8) 10/08/21: Chaves # (Auto) 0.9 10^3/uL (0.2-0.9) 10/08/21: Eos # (Auto) 0.1 10^3/uL (0.0-0.8) 10/08/21 17: Baso # (Auto) 0.0 10^3/uL (0.0-0.1) 10/08/21: Nucleated RBC % (auto) 0 % 10/08/21: Nucleated RBCs # 0.0 /100WBC 10/08/21 17: Sodium 139 mmol/L (136-145) 10/08/21: Potassium 4.1 mmol/L (3.5-5.1) 10/08/21 17: Chloride 99 mmol/L (98-107) 10/08/21 17: Carbon Dioxide 32 mmol/L (22-29) H 10/08/21: Anion Gap 12.1 (5-19) 10/08/21 17: BUN 6 mg/dL (8-23) L 10/08/21 17: Creatinine 0.7 mg/dL (0.7-1.2) 10/08/21 17: GFR Calculation Not Reportable 10/08/21: Glucose 101 mg/dL (65-115) 10/08/21 17:27 Calculated Osmolality 286 mOsm/kg (285-295) 10/08/21 17: Calcium 9.6 mg/dL (8.5-10.5) 10/08/21 17: Total Bilirubin 1.6 mg/dL (0.15-1.2) H 10/08/21 17: AST 25 U/L (0-40) 10/08/21: ALT 24 U/L (0-41) 10/08/21: Alkaline Phosphatase 52 IU/L (40-130) 10/08/21 17: Troponin T Baseline 15 ng/L (0-15) 10/08/21 17: Troponin T 120 Minute 14.62 ng/L (0-15) 10/08/21 20:00 Delta Troponin T -0.38 ABS# (0-10) L 10/08/21 20:00 NT-Pro-B Natriuret Pep 1616 pg/mL (0-125) H 10/08/21: Total Protein 7.0 g/dL (6.6-8.7) 10/08/21 17: Albumin 4.6 g/dL (3.5-5.2) 10/08/21 17: Globulin 2.4 g/dL (1.3-4.6) 10/08/21 17:27 Nasal Influ A H1 2009 PCR Not detected (NOT DETECT) 10/08/21 20:06 Coronavirus 229E (PCR) Not detected (NOT DETECT) 10/08/21 17:58 Influenza A (H1) PCR Not detected (NOT DETECT) 10/08/21 20:06 Influenza A (H3) PCR Detected (NOT DETECT) A 10/08/21 20:06 Influenza Type A (PCR) Detected (NOT DETECT) A 10/08/21 20:06 Influenza Type B (PCR) Not detected (NOT DETECT) 10/08/21 20:06 SARS-CoV-2 (PCR) Not detected (NOT DETECT) 10/08/21 17:58 EKG Data EKG 1: I personally reviewed and interpreted this EKG as follows: EKG Interpretation Date: 10/08/21 EKG interpretation time: 17:35 Interpretation: Twelve-lead EKG shows a regular rhythm at a rate of 78. CA interval 216, QRS duration 89, QTc 487. Normal axis. Interpretation: Sinus rhythm. First-degree AV block. PVCs. Discharge Plan Discharge Patient Disposition: Home Clinical Impression: Influenza A, Acute exacerbation of chronic obstructive airways disease, Chest pain Condition: Stable Prescriptions: New albuterol sulfate 90 mcg/actuation HFA aerosol inhaler 2 inh inhalation Q4H PRN (Reason: shortness of breath or wheezing) Qty: 8.5 1RF prednisone 50 mg tablet 50 mg PO DAILY 5 Days Qty: 5 0RF Tamiflu 75 mg capsule 75 mg PO BID 5 Days Qty: 10 0RF No Action finasteride 5 mg tablet 5 mg PO DAILY 0RF cholecalciferol (vitamin D3) 2,000 unit tablet 2,000 unit PO DAILY 0RF atorvastatin 40 mg tablet 40 mg PO DAILY 0RF tamsulosin 0.4 mg capsule 0.4 mg PO DAILY 0RF ascorbic acid (vitamin C) 500 mg tablet 500 mg PO DAILY 0RF omega-3 fatty acids 1,000 mg capsule 1,000 mg PO DAILY 0RF aspirin 81 mg tablet,delayed release (DR/EC) 81 mg PO DAILY 0RF hydrocodone-acetaminophen [[place]] 7.5-325 mg tablet 1 tab PO Q6H PRN (Reason: pain) 14 Days Qty: 40 0RF methenamine hippurate 1 gram tablet See Rx Instructions .ROUTE .COMPLEX Qty: 60 12RF Dose Instruction: TAKE 1 TABLET BY MOUTH TWICE DAILY WITH 1000 MG OF VITAMIN(C) Rx Instructions: TAKE 1 TABLET BY MOUTH TWICE DAILY WITH 1000 MG OF VITAMIN(C) amoxicillin-pot clavulanate 875-125 mg tablet 1 tab PO BID Qty: 20 0RF metoprolol succinate 100 mg tablet extended release 24 hr 100 mg PO DAILY Qty: 90 3RF meloxicam 15 mg Tablet 15 mg PO DAILY 0RF oxycodone-acetaminophen 5-325 mg Tablet 1 tab PO Q4H PRN (Reason: Severe Pain) Qty: 40 0RF Discharge Orders: Discharge ED (Routine); Ordered 10/08/21 Ordered By: Adam Peguero Referrals: Ming Flores, [Primary Care Provider] - Discharge Diet: Usual diet Discharge Activity: Increase activity as tolerated Patient Instructions: Chest Pain (ED), Influenza (ED), COPD (Chronic Obstru ctive Pulmonary Disease) (ED) Activity Restrictions/Additional Instructions: Thank you for visiting the emergency department. You were seen and evaluated for chest pain and shortness of breath. You are found to have influenza which I believe is worsening your underlying COPD. You will be given a prescription for steroids and medication for flu. Please continue your antibiotics. Please use inhaler 2 puffs every 4 hours for the next 24 hours then 2 puffs every 6 hours for 24 hours then 2 puffs every 8 hours for 24 hours then as needed. Please follow-up with your primary care provider. I will message case management for further outpatient cardiac evaluation as well as pulmonary follow-up. Please return to the emergency department for worsening symptoms or anything else that you are concerned about and feel needs emergency department evaluation. Coding Level of Care Code ED Eyeletter for Salena Fwd Exam Comprehensive
--- NOTE | 2021-10-08 17:33 | PC.NURSE ---
PT PLACED ON CONTINUOUS BEDSIDE CARDIAC, O2 AND BP MONITOR.
[2021-10-08 17:41] LABS: Basophils % 0.3 %; Eosinophils # 0.1 10^3/uL (0.0-0.8); Eosinophils % 0.8 %; Hemoglobin 14.9 g/dL (11.7-16.6); Lymphocytes # 1.9 10^3/uL (0.8-4.8); Lymphocytes % 21.8 %; Mean Corpuscular HGB Conc 33.9 g/dL (30.0-36.0); Mean Corpuscular Hemoglobin 30.9 pg (28.0-34.0); Mean Corpuscular Volume 91.3 fl (80-94); Mean Platelet Volume 11.4 fL (7.4-10.4); Monocytes # 0.9 10^3/uL (0.2-0.9); Monocytes % 10.1 %; Neutrophils # 5.85 10^3/uL (1.8-7.7); Neutrophils % 66.4 %; Nucleated Red Blood Cells % 0 %; Platelet Count 116 10^3/cmm (130-400); Red Blood Count 4.82 10^6/uL (4.1-5.3); Red Cell Distribution Width 15.1 % (12.1-15.1); White Blood Count 8.8 10^3/uL (4.0-10.0)
[2021-10-08 18:16] LABS: Troponin(5th) Baseline 15 ng/L (0-15)
[2021-10-08 18:25] LABS: Alanine Aminotransferase 24 U/L (0-41); Albumin Level 4.6 g/dL (3.5-5.2); Alkaline Phosphatase 52 IU/L (40-130); Blood Urea Nitrogen 6 mg/dL (8-23); Calcium 9.6 mg/dL (8.5-10.5); Carbon Dioxide 32 mmol/L (22-29); Chloride 99 mmol/L (98-107); Globulin 2.4 g/dL (1.3-4.6); Glucose 101 mg/dL (65-115); NT Pro B Type Natriuretic Pept 1616 pg/mL (0-125); Osmolality Calculated 286 mOsm/kg (285-295); Sodium 139 mmol/L (136-145); Total Bilirubin 1.6 mg/dL (0.15-1.2)
[2021-10-08 18:28] LABS: Anion Gap 12.1 (5-19); Aspartate Amino Transferase 25 U/L (0-40); Potassium 4.1 mmol/L (3.5-5.1)
--- NOTE | 2021-10-08 19:24 | ECG_ITS ---
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 Measurements Intervals Pioneer Rate: 78 P: 52 NC: 216 QRS: 49 QRSD: 89 T: 47 QT: 426 QTc: 487 Interpretive Statements SINUS RHYTHM WITH FIRST DEGREE AV BLOCK WITH FREQUENT VENTRICULAR PREMATURE COMPLEXES POSSIBLE INFERIOR MYOCARDIAL INFARCTION , PROBABLY OLD [30 ms Q WAVE IN II/aVF] POSSIBLE ANTEROLATERAL MYOCARDIAL INFARCTION , PROBABLY OLD [30 ms Q WAVE IN I/aVL/V3-V6] Compared to ECG 03/21/2020 10:39:28 Ventricular premature complex(es) now present Myocardial infarct finding still present Electronically Signed On 10-10-2021 13:43:17 CDT by Lidya Rojas M.D. [id number]
[2021-10-08 19:54] LABS: Adenovirus Not Detected (NOT DETECT); Chlamydia Pneumoniae Not Detected (NOT DETECT); Coronavirus 229E,HKU1,NL63,OC4 Not Detected (NOT DETECT); Human Metapneumovirus Not Detected (NOT DETECT); Human Rhinovirus/Enterovirus Not Detected (NOT DETECT); Influenza A Detected (NOT DETECT); Influenza A H1 Not Detected (NOT DETECT); Influenza A H1-2009 Not Detected (NOT DETECT); Influenza A H3 Detected (NOT DETECT); Influenza B Not Detected (NOT DETECT); Mycoplasma Pneumoniae Not Detected (NOT DETECT); Parainfluenza Virus Type 1 Not Detected (NOT DETECT); Parainfluenza Virus Type 2 Not Detected (NOT DETECT); Parainfluenza Virus Type 3 Not Detected (NOT DETECT); Parainfluenza Virus Type 4 Not Detected (NOT DETECT); Respiratory Syncytial Virus A Not Detected (NOT DETECT); Respiratory Syncytial Virus B Not Detected (NOT DETECT); SARS-COV-2 Not Detected (NOT DETECT)
[2021-10-08 20:06] LABS: Influenza A Detected (NOT DETECT); Influenza A H1 Not Detected (NOT DETECT); Influenza A H1-2009 Not Detected (NOT DETECT); Influenza A H3 Detected (NOT DETECT); Influenza B Not Detected (NOT DETECT); Results from Genmark
[2021-10-08] MEDS: sodium chloride 0.9% 500 ML 999 ML IV (20:23)
--- NOTE | 2021-10-08 20:34 | PC.RESP ---
TREATMENT WAS GIVEN, MAR WILL NOT ALLOW ME TO ACKNOWLEDGE THE MEDICATION AND SAY THAT IT WAS GIVEN.
[2021-10-08 20:55] LABS: Troponin 5 2HR 14.62 ng/L (0-15)
[2021-10-08 20:57] LABS: Troponin 5 2HR Delta -0.38 ABS# (0-10)
--- NOTE | 2021-10-09 10:12 | DCPLANNER ---
Addendum entered by Gianna Ty 10/09/21 15:04: Patients returned shoe caser phone call. radiology manager gave patients the appointment information. Addendum entered by Gianna Ty 10/09/21 14:46: Patient has a follow up appointment scheduled for Wednesday, October 29, [address] at 9:[address] Taylor for pulmonology. radiology manager called phone number [phone] and [phone] unable to speak with patient at this time, a voicemail was left for patient to return shoe caser phone call. Original Note: radiology manager had message to schedule a follow up appointment for patient with pulmonolgy. radiology manager sent patients information to the front staff at [facility] thru workload. Patients information will be printed and reviewed. Clinic will notify upper caser of the scheduled appointment. radiology manager will call patient with appointment information.
--- NOTE | 2021-10-09 15:30 | DCPLANNER ---
Addendum entered by Gianna Ty 07/16/22 12:58: manager ccu received notification from centralized scheduling, stating that patient did not want the stress test and echo. Addendum entered by Gianna Ty 11/13/21 21:28: Patient had a follow up appointment scheduled with [facility] - patient did attend appointment. Addendum entered by Gianna Ty 10/10/21 14:04: Patient has a follow up appointment scheduled for Wednesday, October 13, 2021 at 12:[address] Desai at [facility]. manager ccu called patients and gave her the appointment information. Addendum entered by Gianna Ty 10/10/21 09:12: Minal confirmed that centralized scheduling did receive order for stress test on 10.10.21. Original Note: manager ccu had message to schedule an outpatient stress test and echo cardiogram for patient. manager ccu faxed signed order to centralized scheduling, who will call patient with appointment information. manager ccu also had message to schedule a follow up appointment for patient with heart care. manager ccu sent patients information to heart care front staff thru [employer] messaging system. Patients information will be printed and reviewed. Clinic will notify corrections caseworker of the scheduled appointment. manager ccu will call patient with appointment information.
== END 2021-10-08 22:05 | disposition home or self-care (01) ==
PROVIDERS: Emergency Provider Emergency Medicine; PCP Family Medicine
DX: J10.1 Influenza due to other identified influenza virus with other respiratory manifestations (principal); J44.1 Chronic obstructive pulmonary disease with (acute) exacerbation; R07.9 Chest pain, unspecified; I10 Essential (primary) hypertension; E05.90 Thyrotoxicosis, unspecified without thyrotoxic crisis or storm; F17.200 Nicotine dependence, unspecified, uncomplicated
CPT/HCPCS: 71045; 80053; 83880; 84484; 85025; 87631; 87635; 93005; 94640; 96374; 99284; J2930; J7040

== ENCOUNTER → 2021-10-13 12:59 | Outpatient (BNVA) | payer MEDICARE, OTHER, SELFPAY | PROVIDERS: PCP Family Medicine; Visit Provider Internal Medicine Cardiovascular Disease | DX: Z09 Encounter for follow-up examination after completed treatment for conditions other than malignant neoplasm (principal); F17.200 Nicotine dependence, unspecified, uncomplicated; I25.10 Atherosclerotic heart disease of native coronary artery without angina pectoris | CPT/HCPCS: 99214 ==

== ENCOUNTER → 2021-10-30 13:58 | Outpatient (BNVA) | payer MEDICARE, OTHER, SELFPAY | PROVIDERS: PCP Family Medicine; Visit Provider Internal Medicine Critical Care Medicine | DX: Z09 Encounter for follow-up examination after completed treatment for conditions other than malignant neoplasm (principal); I25.10 Atherosclerotic heart disease of native coronary artery without angina pectoris; J44.9 Chronic obstructive pulmonary disease, unspecified; J96.11 Chronic respiratory failure with hypoxia; J96.12 Chronic respiratory failure with hypercapnia; Z87.891 Personal history of nicotine dependence; I10 Essential (primary) hypertension; E05.90 Thyrotoxicosis, unspecified without thyrotoxic crisis or storm | CPT/HCPCS: 99204 ==

== ENCOUNTER → 2021-11-12 14:37 | Outpatient (BNVA) | payer MEDICARE, OTHER, SELFPAY | PROVIDERS: PCP Family Medicine; Visit Provider Nurse Practitioner Family | DX: Z96.0 Presence of urogenital implants (principal); N35.811 Other urethral stricture, male, meatal | CPT/HCPCS: 51702 ==

== ENCOUNTER → 2021-11-24 12:38 | Outpatient (BNVA) | payer MEDICARE, OTHER, SELFPAY | PROVIDERS: PCP Family Medicine; Visit Provider Nurse Practitioner Family | DX: I49.3 Ventricular premature depolarization (principal); F17.210 Nicotine dependence, cigarettes, uncomplicated | CPT/HCPCS: 99213 ==

== ENCOUNTER 2021-12-02 12:35 | Outpatient (CLI) | payer MEDICARE, OTHER, SELFPAY ==
--- NOTE | 2021-12-02 13:17 | PFTS_ITS ---
Date of Study:12/02/21 Date of Dictation: MECHANICS: Forced vital capacity (FVC) is normal. Forced expiratory volume in one second (FEV1) is normal. FEV1/FVC is normal. FLOW VOLUME LOOP: Mild scooping. LUNG VOLUMES: Total lung capacity (TLC) is normal. Residual volume (RV) is increased. DIFFUSING CAPACITY FOR CARBON MONOXIDE: Moderately reduced. INTERPRETATION: The postbronchodilator spirometry is normal. There is no significant postbronchodilator response. Flow volume loop is consistent with small airways disease. Lung volumes are consistent with air trapping. Gas exchange (DLCO) is moderately reduced. MTDD
== END 2021-12-02 12:36 | disposition home or self-care (01) ==
LOC: RT 12:36
PROVIDERS: PCP Family Medicine; Visit Provider Internal Medicine Critical Care Medicine
DX: J44.9 Chronic obstructive pulmonary disease, unspecified (principal); F17.210 Nicotine dependence, cigarettes, uncomplicated
CPT/HCPCS: 94060; 94726; 94729; J7614

== ENCOUNTER → 2021-12-10 14:32 | Outpatient (BNVA) | payer MEDICARE, OTHER, SELFPAY | PROVIDERS: PCP Family Medicine; Visit Provider Nurse Practitioner Family | DX: Z96.0 Presence of urogenital implants (principal); N35.811 Other urethral stricture, male, meatal | CPT/HCPCS: 51705 ==

== ENCOUNTER → 2022-01-07 15:03 | Outpatient (BNVA) | payer MEDICARE, OTHER, SELFPAY | PROVIDERS: PCP Family Medicine; Visit Provider Nurse Practitioner Family | DX: R39.89 Other symptoms and signs involving the genitourinary system (principal); R82.71 Bacteriuria; N35.811 Other urethral stricture, male, meatal; Z96.0 Presence of urogenital implants | CPT/HCPCS: 51705; 81003 ==

== ENCOUNTER → 2022-01-15 13:53 | Outpatient (BNVA) | payer MEDICARE, OTHER, SELFPAY | PROVIDERS: PCP Family Medicine; Visit Provider Internal Medicine Cardiovascular Disease | DX: I25.10 Atherosclerotic heart disease of native coronary artery without angina pectoris (principal); I10 Essential (primary) hypertension; J44.9 Chronic obstructive pulmonary disease, unspecified; J96.12 Chronic respiratory failure with hypercapnia; J96.11 Chronic respiratory failure with hypoxia; F17.210 Nicotine dependence, cigarettes, uncomplicated | CPT/HCPCS: 99213; 99214 ==

== ENCOUNTER → 2022-02-02 14:50 | Outpatient (BNVA) | payer MEDICARE, OTHER, SELFPAY | PROVIDERS: PCP Family Medicine; Visit Provider Nurse Practitioner Family | DX: Z96.0 Presence of urogenital implants (principal); N35.811 Other urethral stricture, male, meatal | CPT/HCPCS: 51702 ==

== ENCOUNTER 2022-04-02 13:10 | Outpatient (CLI) | payer MEDICARE, OTHER, SELFPAY ==
--- NOTE | 2022-04-02 13:30 | CT_ITS ---
WS: [id number] CT ABDOMEN PELVIS TECHNIQUE: Noncontrast CT of the abdomen and contrast-enhanced CT of the abdomen and pelvis with baylee nal and sagittal reformatted images. CLINICAL INFORMATION: History of Penile Cancer COMPARISON: CT January 11, 2020 DLP: 1363.[address] scans at [facility] use at least one of these dose optimization techniques: automated e xposure control; mA and/or kV adjustment per patient size (includes targeted exams where dose is matc hed to clinical indication); or iterative reconstruction. FINDINGS: Slight bibasilar atelectasis. Lung bases are well aerated. Normal liver. Normal portal vein and splen ic vein. Normal GE junction. Normal spleen. Normal renal parenchymal enhancement. Adrenal glands are normal. No hydronephrosis in either kidney. Garrison catheter. Normal appendix in the RIGHT lower quadrant. Postoperative changes RIGHT KONSTANTIN. Advance d osteoarthritis LEFT hip. No hydronephrosis in either kidney. No obstructing renal or ureteral calculi. Normal renal parenchyma l enhancement. Small LEFT renal cortical cyst. Normal excretion on the delayed images. Normal opacifi cation of the ureters. No pelvic or inguinal lymphadenopathy. Postoperative changes LEFT inguinal region. CT/CT abdomen pelvis wo/w [id number] IMPRESSION: 1. No evidence of metastatic disease in the abdomen or pelvis. 2. Infrarenal abdominal aortic aneurysm with peripheral thrombus measuring 3.5 x 3.3 cm AP by transverse. The aneurysm is slightly enlarged compared to January 11, 2020. 3. No adenopathy in the abdomen or pelvis. 4. Normal renal parenchymal enhancement. Normal excretion on the delayed image s. 5. Garrison catheter in place. 6. Postoperative changes LEFT inguinal region. 7. Grade 1 anterolisthesis L4 on L5 with chronic spondylolysis unchanged.
[2022-04-02] MEDS: iohexol 350 mg/mL 100 mL Btl IV (13:49)
[2022-04-02 14:35] LABS: Blood Urea Nitrogen 11 mg/dL (8-23)
== END 2022-04-02 13:11 | disposition home or self-care (01) ==
LOC: RAD 13:11
PROVIDERS: Urology; PCP Family Medicine; Visit Provider Nurse Practitioner Family
DX: N35.811 Other urethral stricture, male, meatal (principal); Z85.49 Personal history of malignant neoplasm of other male genital organs
CPT/HCPCS: 51702; 74178; 82565; 84520; 99213

== ENCOUNTER → 2022-04-29 12:58 | Outpatient (BNVA) | payer MEDICARE, OTHER, SELFPAY | PROVIDERS: PCP Family Medicine; Visit Provider Nurse Practitioner Family | DX: Z96.0 Presence of urogenital implants (principal); N35.811 Other urethral stricture, male, meatal | CPT/HCPCS: 51702 ==

== ENCOUNTER → 2022-05-26 14:54 | Outpatient (BNVA) | payer MEDICARE, OTHER, SELFPAY | PROVIDERS: PCP Family Medicine; Visit Provider Urology | DX: N35.811 Other urethral stricture, male, meatal (principal); Z96.0 Presence of urogenital implants | CPT/HCPCS: 51702 ==

== ENCOUNTER → 2022-06-22 14:59 | Outpatient (BNVA) | payer MEDICARE, OTHER, SELFPAY | PROVIDERS: PCP Family Medicine; Visit Provider Urology | DX: Z96.0 Presence of urogenital implants (principal); N35.811 Other urethral stricture, male, meatal | CPT/HCPCS: 51705 ==

== ENCOUNTER → 2022-07-16 14:43 | Outpatient (BNVA) | payer MEDICARE, OTHER, SELFPAY | PROVIDERS: PCP Family Medicine; Visit Provider Internal Medicine Cardiovascular Disease | DX: I25.10 Atherosclerotic heart disease of native coronary artery without angina pectoris (principal); I10 Essential (primary) hypertension; J96.12 Chronic respiratory failure with hypercapnia; J96.11 Chronic respiratory failure with hypoxia; J44.9 Chronic obstructive pulmonary disease, unspecified | CPT/HCPCS: 99214; Q3014 ==

== ENCOUNTER → 2022-08-18 15:04 | Outpatient (BNVA) | payer MEDICARE, OTHER, SELFPAY | PROVIDERS: PCP Family Medicine; Visit Provider Urology | DX: Z96.0 Presence of urogenital implants (principal); N35.811 Other urethral stricture, male, meatal; Z85.49 Personal history of malignant neoplasm of other male genital organs | CPT/HCPCS: 51702 ==

== ENCOUNTER 2022-10-21 13:54 | Outpatient (CLI) | payer MEDICARE, OTHER, SELFPAY ==
--- NOTE | 2022-10-21 14:30 | CT_ITS ---
WS: [id number] LDCT LUNG CANCER SCREENING TECHNIQUE: Noncontrast CT of the chest with coronal and sagittal reformatted images. CLINICAL INFORMATION: lung screeni COMPARISON: CT chest January 11, 2020 DLP: 137.90 mGy.cm DIvol: Mean CTDIvol: 2.90 (mGy) All CT scans at [facility] use at least one of these dose optimization techniques: automat ed exposure control; mA and/or kV adjustment per patient size (includes targeted exams where dose is matched to clinical indication); or iterative reconstruction. FINDINGS:3 mm noncalcified nodule RIGHT upper lobe. Subsegmental atelectasis RIGHT middle lobe. 4 mm noncalcified nodule RIGHT lower lobe. Mild aortic calcification. Normal caliber thoracic aorta. Coronary calcification. No mediastinal or h ilar lymphadenopathy. No axillary lymphadenopathy. Adrenal glands are normal. Normal GE junction. Sma ll LEFT renal cyst. Mild hypertrophic changes thoracic spine. CT/CT lung screening [id number] IMPRESSION: LUNG-RADS: 2-Benign Appearance or Behavior FOLLOW UP: 12 Month: Continue annual screening with LDCT
== END 2022-10-21 13:55 | disposition home or self-care (01) ==
PROVIDERS: PCP Family Medicine; Visit Provider Internal Medicine Pulmonary Disease
DX: Z12.2 Encounter for screening for malignant neoplasm of respiratory organs (principal); F17.210 Nicotine dependence, cigarettes, uncomplicated; N35.811 Other urethral stricture, male, meatal
CPT/HCPCS: 71271; 99214

== ENCOUNTER → 2023-03-09 13:24 | Outpatient (BNVA) | payer MEDICARE, OTHER, SELFPAY | PROVIDERS: PCP Family Medicine; Visit Provider Nurse Practitioner Family | DX: I25.10 Atherosclerotic heart disease of native coronary artery without angina pectoris (principal); I10 Essential (primary) hypertension | CPT/HCPCS: 99214 ==

== ENCOUNTER → 2023-04-07 12:53 | Outpatient (BNVA) | payer MEDICARE, OTHER, SELFPAY | PROVIDERS: PCP Family Medicine; Visit Provider Internal Medicine Pulmonary Disease | DX: J42 Unspecified chronic bronchitis (principal); J96.11 Chronic respiratory failure with hypoxia; J96.12 Chronic respiratory failure with hypercapnia; I25.10 Atherosclerotic heart disease of native coronary artery without angina pectoris; Z12.2 Encounter for screening for malignant neoplasm of respiratory organs; Z87.891 Personal history of nicotine dependence; J98.8 Other specified respiratory disorders; G47.36 Sleep related hypoventilation in conditions classified elsewhere; Z91.141 Patient's other noncompliance with medication regimen due to financial hardship | CPT/HCPCS: 99214 ==

== ENCOUNTER 2023-09-21 10:24 | Oncology outpatient (recurring) (ONCR) | payer MEDICARE, OTHER, SELFPAY ==
[2023-09-21 12:06] LABS: Basophils # 0.1 10^3/uL (0.0-0.1); Basophils % 0.7 %; Eosinophils # 0.2 10^3/uL (0.0-0.8); Eosinophils % 1.8 %; Hematocrit 40.7 % (37-53); Lymphocytes # 2.4 10^3/uL (0.8-4.8); Lymphocytes % 27.6 %; Mean Corpuscular HGB Conc 33.7 g/dL (30-55); Mean Corpuscular Volume 89.1 fl (82-101); Mean Platelet Volume 11.8 fL (7.4-10.4); Monocytes # 1.1 10^3/uL (0.2-0.9); Neutrophils # 5.08 10^3/uL (1.8-7.7); Neutrophils % 57.4 %; Nucleated Red Blood Cells % 0 %; Platelet Count 106 10^3/cmm (157-399); Red Blood Count 4.57 10^6/uL (3.85-5.65); Red Cell Distribution Width 14.9 % (12.1-15.1); White Blood Count 8.84 10^3/uL (3.29-11.43)
[2023-09-21 12:11] LABS: Erythrocyte Sedimentation Rate < 1 mm/hr (0-10)
[2023-09-21 12:24] LABS: LAB Peripheral Smear Sent for Review
[2023-09-21 12:40] LABS: Alanine Aminotransferase 22 U/L (0-41); Albumin Level 4.3 g/dL (3.5-5.2); Alkaline Phosphatase 53 U/L (40-130); Anion Gap 13.5 (5-19); Aspartate Amino Transferase 22 U/L (0-40); Blood Urea Nitrogen 10 mg/dL (8-23); Calcium 9.3 mg/dL (8.5-10.5); Carbon Dioxide 28 mmol/L (22-29); Chloride 102 mmol/L (98-107); Creatinine Clr Calc Pharmacy 103.8249; Globulin 2.4 g/dL (1.3-4.6); Glucose 97 mg/dL (65-115); Lactate Dehydrogenase 156 U/L (135-225); Osmolality Calculated 287 mOsm/kg (285-295); Potassium 4.5 mmol/L (3.5-5.1); Sodium 139 mmol/L (136-145); Thyroid Stimulating Hormone 6.33 uIU/mL (0.27-4.20); Total Bilirubin 1.1 mg/dL (0.15-1.2); Total Protein 6.7 g/dL (6.6-8.7)
[2023-09-21 12:58] LABS: Iron 91 ug/dL (59-158); Percent Saturation 37.9 % (20-50); Total Iron Binding Capacity 240 mcg/dl; Unsaturated Iron Binding 149 ug/dL (112-347)
[2023-09-21 13:15] LABS: Vitamin B12 699 pg/mL (232-1245)
[2023-09-23 12:20] LABS: Anti-Nuclear Antibody Pattern Cytoplasmic; Anti-Nuclear Antibody Screen POSITIVE (NEGATIVE); Anti-Nuclear Antibody Titer 1:40 titer
[2023-09-23 19:40] LABS: Copper Level 107 mcg/dL (70-175)
== END 2023-10-10 23:59 | disposition home or self-care (01) ==
PROVIDERS: PCP Family Medicine; Visit Provider Internal Medicine Medical Oncology
DX: D69.6 Thrombocytopenia, unspecified (principal); I10 Essential (primary) hypertension; M25.50 Pain in unspecified joint; R53.83 Other fatigue; Z92.21 Personal history of antineoplastic chemotherapy; Z92.3 Personal history of irradiation
CPT/HCPCS: 36415; 80053; 82525; 82607; 83540; 83550; 83615; 84443; 85025; 85651; 86038; 86140; 99205

== ENCOUNTER → 2023-10-06 12:43 | Outpatient (BNVA) | payer MEDICARE, OTHER, SELFPAY | PROVIDERS: PCP Family Medicine; Visit Provider Internal Medicine Pulmonary Disease | DX: J42 Unspecified chronic bronchitis (principal); J96.11 Chronic respiratory failure with hypoxia; J96.12 Chronic respiratory failure with hypercapnia; I25.10 Atherosclerotic heart disease of native coronary artery without angina pectoris; F17.210 Nicotine dependence, cigarettes, uncomplicated; I10 Essential (primary) hypertension | CPT/HCPCS: 99214 ==

== ENCOUNTER 2023-10-26 16:17 | Outpatient (CLI) | payer MEDICARE, OTHER, SELFPAY ==
--- NOTE | 2023-10-26 16:30 | CT_ITS ---
WS: [id number] LDCT LUNG CANCER SCREENING TECHNIQUE: Noncontrast CT of the chest with coronal and sagittal reformatted images. CLINICAL INFORMATION: pulmonary nodule COMPARISON: 10/21/2022 DLP: 131.29 mGy.cm DIvol: Mean CTDIvol: 2.80 (mGy) All CT scans at [facility] use at least one of these dose optimization techniques: automat ed exposure control; mA and/or kV adjustment per patient size (includes targeted exams where dose is matched to clinical indication); or iterative reconstruction. FINDINGS: Normal caliber thoracic aorta. Aortic calcification. Coronary calcification. No mediastinal or hilar lymphadenopathy. No axillary lymphadenopathy. Adrenal glands are normal. Tiny esophageal hiatal hernia. Mild hypertrophic changes thoracic spine. Stable 3 to 4 mm nodules in the RIGHT upper lobe and RIGHT lower lobe. No new suspicious pulmonary pa renchymal normalities. Subsegmental atelectasis RIGHT middle lobe. IMPRESSION: CT/CT lung screening [id number] LUNG-RADS: 2-Benign Appearance or Behavior FOLLOW UP: 12 Month: Continue annual screening with LDCT
== END 2023-10-26 16:18 | disposition home or self-care (01) ==
LOC: RAD 16:17
PROVIDERS: PCP Family Medicine; Visit Provider Internal Medicine Pulmonary Disease
DX: R91.1 Solitary pulmonary nodule (principal); Z12.2 Encounter for screening for malignant neoplasm of respiratory organs
CPT/HCPCS: 71271

== ENCOUNTER → 2023-11-22 10:22 | Outpatient (BNVA) | payer MEDICARE, OTHER, SELFPAY | PROVIDERS: PCP Family Medicine; Visit Provider Internal Medicine | DX: E07.9 Disorder of thyroid, unspecified (principal); R79.89 Other specified abnormal findings of blood chemistry; D69.6 Thrombocytopenia, unspecified; M19.90 Unspecified osteoarthritis, unspecified site; R76.8 Other specified abnormal immunological findings in serum | CPT/HCPCS: 36415; 84439; 84443; 86376; 86800; 99204 ==

== ENCOUNTER 2023-12-28 11:18 | Oncology outpatient (recurring) (ONCR) | payer MEDICARE, OTHER, SELFPAY ==
[2023-12-28 11:50] LABS: Basophils # 0.1 10^3/uL (0.0-0.1); Basophils % 0.5 %; Eosinophils # 0.1 10^3/uL (0.0-0.8); Eosinophils % 1.4 %; Hematocrit 40.1 % (37-53); Lymphocytes # 2.2 10^3/uL (0.8-4.8); Lymphocytes % 23.9 %; Mean Corpuscular HGB Conc 34.2 g/dL (30-55); Mean Corpuscular Hemoglobin 30.5 pg (27-33); Mean Corpuscular Volume 89.3 fl (82-101); Mean Platelet Volume 11.8 fL (7.4-10.4); Monocytes # 1.3 10^3/uL (0.2-0.9); Monocytes % 13.7 %; Neutrophils # 5.62 10^3/uL (1.8-7.7); Neutrophils % 60.1 %; Nucleated Red Blood Cells % 0 %; Platelet Count 104 10^3/cmm (157-399); Red Blood Count 4.49 10^6/uL (3.85-5.65); Red Cell Distribution Width 14.9 % (12.1-15.1); White Blood Count 9.36 10^3/uL (3.29-11.43)
[2023-12-28 12:13] LABS: Alanine Aminotransferase 15 U/L (0-41); Albumin Level 4.1 g/dL (3.5-5.2); Alkaline Phosphatase 58 U/L (40-130); Aspartate Amino Transferase 16 U/L (0-40); Blood Urea Nitrogen 7 mg/dL (8-23); Carbon Dioxide 26 mmol/L (22-29); Chloride 104 mmol/L (98-107); Free T4 Free Thyroxine 1.06 ng/dL (0.82-1.77); Globulin 2.4 g/dL (1.3-4.6); Glucose 101 mg/dL (65-115); Lactate Dehydrogenase 158 U/L (135-225); Osmolality Calculated 288 mOsm/kg (285-295); Sodium 140 mmol/L (136-145); Thyroid Stimulating Hormone 4.34 uIU/mL (0.27-4.20); Total Bilirubin 0.9 mg/dL (0.15-1.2); Total Protein 6.5 g/dL (6.6-8.7)
[2023-12-28 12:20] LABS: LAB Peripheral Smear Sent for Review
== END 2024-01-09 23:59 | disposition home or self-care (01) ==
LOC: ONCMED 11:19
PROVIDERS: PCP Family Medicine; Visit Provider Internal Medicine Medical Oncology
DX: D69.6 Thrombocytopenia, unspecified (principal); C60.2 Malignant neoplasm of body of penis; E07.9 Disorder of thyroid, unspecified; R79.89 Other specified abnormal findings of blood chemistry
CPT/HCPCS: 36415; 80053; 83615; 84439; 84443; 85025; 99213

== ENCOUNTER 2024-02-28 14:30 | Outpatient (CLI) | payer MEDICARE, OTHER, SELFPAY ==
--- NOTE | 2024-02-28 14:39 | CTR_ITS ---
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 3D rendering (Not supervised by radiologist): MIP and/or 3D reconstructed images were created by the technologist. Radiation optimization: All CT scans at this facility use at least one of these dose optimization techniques: automated exposure control; mA and/or kV adjustment per patient size (includes targeted exams where dose is matched to clinical indication); or iterative reconstruction. Contrast material: OMNI 350; Contrast volume: 100 ml; Contrast route: INTRAVENOUS (IV); COMPARISON: CT abdomen pelvis wo/w [id number] 04/02/2022 2:22 PM RADIATION DOSE METRICS: Total DLP (mGy-cm): 2951.29 FINDINGS: Lungs: Lung bases are clear as visualized. Liver: Normal. No mass. Gallbladder and biliary ducts: Normal. No calcified stones. No ductal dilation. Pancreas: Normal. No ductal dilation. Spleen: Normal. No splenomegaly. Adrenal glands: Normal. No mass. Kidneys and ureters: Benign-appearing bilateral renal cysts, including hyperattenuating cysts in the left inferior pole. Stomach and bowel: No bowel obstruction or acute inflammation. Mild colonic diverticulosis. Appendix: No evidence of appendicitis. Intraperitoneal space: Unremarkable. No free air. No significant fluid collection. Vasculature: Severe atherosclerosis of the abdominal aorta, with aneurysmal dilatation immediately cephalad to the iliac bifurcation, measuring approximately 3.8 x 3.6 cm axial. Mural thrombus in the posterior of the lower aorta.. Lymph nodes: left inguinal lymph node dissection. Urinary bladder: Bladder is severely decompressed by Garrison catheter. Reproductive: Prostatomegaly, with mild asymmetric enlargement and heterogeneous enhancement of the left gland . Bones/joints: Grade 1 anterolisthesis at L4-L5 secondary to bilateral L4 pars defects. Mild-moderate multilevel degenerative change in the lumbar spine. Soft tissues: Prior penectomy . No recurrent or residual enhancing mass identified. CT/CT abdomen pelvis wo/w [id number] IMPRESSION: 1. Prior penectomy . No recurrent or residual enhancing mass identified. 2. Prostatomegaly, with mild asymmetric enlargement and heterogeneous enhancement of the left gland . Recommend correlation with serum PSA and clinical exam to exclude malignancy. COMMENTS: Consistent with the [employer]'s Incidental Findings Committee white paper (J Am Margarito Radiol 2018): Any incidental renal lesion less than 1 cm or classified as too small to characterize, or any incidental cystic renal lesion characterized as simple-appearing, is likely benign. No follow-up imaging is recommended for these lesions per consensus recommendations based on imaging criteria.
[2024-02-28 15:27] LABS: Blood Urea Nitrogen 12 mg/dL (8-23)
[2024-02-28] MEDS: iohexol 350 mg/mL 500 mL Btl (per mL) IV (15:42)
== END 2024-02-28 14:31 | disposition home or self-care (01) ==
LOC: RAD 14:33
PROVIDERS: Radiology Neuroradiology; PCP Family Medicine; Visit Provider Urology
DX: C60.9 Malignant neoplasm of penis, unspecified (principal); Z90.79 Acquired absence of other genital organ(s); N40.0 Benign prostatic hyperplasia without lower urinary tract symptoms; N28.1 Cyst of kidney, acquired; I70.0 Atherosclerosis of aorta; I71.40 Abdominal aortic aneurysm, without rupture, unspecified; Z96.0 Presence of urogenital implants; M47.816 Spondylosis without myelopathy or radiculopathy, lumbar region
CPT/HCPCS: 74178; 82565; 84520; Q9967

== ENCOUNTER → 2024-03-07 15:30 | Outpatient (BNVA) | payer MEDICARE, OTHER, SELFPAY | PROVIDERS: PCP Family Medicine; Visit Provider Internal Medicine Cardiovascular Disease | DX: I25.10 Atherosclerotic heart disease of native coronary artery without angina pectoris (principal); I10 Essential (primary) hypertension; I71.40 Abdominal aortic aneurysm, without rupture, unspecified; E78.5 Hyperlipidemia, unspecified; J44.9 Chronic obstructive pulmonary disease, unspecified; F17.210 Nicotine dependence, cigarettes, uncomplicated | CPT/HCPCS: 99214 ==

== ENCOUNTER 2024-03-20 14:51 | Outpatient (CLI) | payer MEDICARE, OTHER, SELFPAY ==
--- NOTE | 2024-03-20 15:00 | CTR_ITS ---
PROCEDURE INFORMATION: Exam: CTA Chest With Contrast CTA Abdomen and Pelvis With Contrast Exam date and time: 03/20/2024 3:18 PM Age: 79 years old Clinical indication: Condition or disease; Other: Aaa; Arterial aneurysm; Without rupture; Abdominal; Prior surgery; Surgery date: 6+ months; Surgery type: Penile, let inguinal; Patient HX: HX of penile cancer TECHNIQUE: Imaging protocol: Computed tomographic angiography of the chest with contrast. Exam focused on the arteries. Computed tomographic angiography of the abdomen and pelvis with contrast. Exam focused on the arteries. 3D rendering (Not supervised by radiologist): MIP and/or 3D reconstructed images were created by the technologist. Radiation optimization: All CT scans at this facility use at least one of these dose optimization techniques: automated exposure control; mA and/or kV adjustment per patient size (includes targeted exams where dose is matched to clinical indication); or iterative reconstruction. Contrast material: OMNI 350; Contrast volume: 100 ml; Contrast route: INTRAVENOUS (IV); COMPARISON: CT abdomen pelvis wo/w [id number] 02/28/2024 3:36 PM RADIATION DOSE METRICS: Total DLP (mGy-cm): 862.78 FINDINGS: VASCULATURE: Pulmonary arteries: Normal. No pulmonary emboli. Aorta: 3.6 x 3.4 cm aneurysm of the infrarenal abdominal aorta with mild mural thrombus. This is unchanged since 04/02/2022. Celiac trunk and mesenteric arteries: No occlusion or significant stenosis. Renal arteries: Moderate stenosis near the origin of the left renal artery. Right iliac arteries: No occlusion or significant stenosis. Left iliac arteries: No occlusion or significant stenosis. CHEST: Lungs: Unremarkable. No consolidation. No masses. Pleural spaces: Unremarkable. No pneumothorax. No pleural effusion. Heart: Unremarkable. No cardiomegaly. No pericardial effusion. ABDOMEN AND PELVIS: Liver: No mass. Gallbladder and biliary ducts: Unremarkable. No calcified stones. No ductal dilation. Pancreas: Unremarkable. No mass. No ductal dilation. Spleen: Unremarkable. No splenomegaly. Adrenal glands: Unremarkable. No mass. Kidneys and ureters: Small left renal cyst. There is a 12 mm masslike bulge from the posterior cortex of the mid left kidney (5-73). In retrospect this was present on 04/02/2022 and has not changed. It is therefore most likely benign. Consider MR without and with contrast for further evaluation, MRI is the preferred modality for masses under 15mm. Stomach and bowel: Unremarkable. No obstruction. No mucosal thickening. Appendix: No evidence of appendicitis. Intraperitoneal space: Unremarkable. No free air. No significant fluid collection. Urinary bladder: Urinary bladder is collapsed around a Garrison catheter. Reproductive: Unremarkable as visualized. Lymph nodes: Unremarkable. No enlarged lymph nodes. Bones/joints: Right hip replacement. Soft tissues: Unremarkable. CT/CT angio abdomen pelvis [id number] IMPRESSION: 1. Stable 3.6 cm infrarenal abdominal aortic aneurysm. 2. 12 mm left renal mass. Consider MRI for further evaluation. Note that this was present in 2021 and appears unchanged. COMMENTS: Consistent with the [employer]'s Incidental Findings Committee white paper (J Am Margarito Radiol 2018): Any incidental renal lesion less than 1 cm or classified as too small to characterize, or any incidental cystic renal lesion characterized as simple-appearing, is likely benign. No follow-up imaging is recommended for these lesions per consensus recommendations based on imaging criteria.
[2024-03-20] MEDS: iohexol 350 mg/mL 500 mL Btl (per mL) IV (15:30)
== END 2024-03-20 14:52 | disposition home or self-care (01) ==
LOC: RAD 14:52
PROVIDERS: PCP Family Medicine; Visit Provider Internal Medicine Cardiovascular Disease
DX: I71.43 Infrarenal abdominal aortic aneurysm, without rupture (principal); I25.10 Atherosclerotic heart disease of native coronary artery without angina pectoris; N28.89 Other specified disorders of kidney and ureter
CPT/HCPCS: 74174

== ENCOUNTER → 2025-01-16 13:14 | Outpatient (BNVA) | payer MEDICARE, OTHER, SELFPAY | PROVIDERS: PCP Family Medicine; Visit Provider Nurse Practitioner Family | DX: I25.10 Atherosclerotic heart disease of native coronary artery without angina pectoris (principal); I10 Essential (primary) hypertension; I48.91 Unspecified atrial fibrillation; Z79.01 Long term (current) use of anticoagulants; E78.5 Hyperlipidemia, unspecified; I71.40 Abdominal aortic aneurysm, without rupture, unspecified; F17.210 Nicotine dependence, cigarettes, uncomplicated; Z95.5 Presence of coronary angioplasty implant and graft | CPT/HCPCS: 99214 ==

== ENCOUNTER 2025-02-02 18:43 | Emergency (ER) | payer MEDICARE, OTHER, SELFPAY ==
--- OUTSIDE RECORDS SUMMARY | 2003-07-11 19:00 | XMS_ITS | Continuity of Care Document ---
Author Name [facility] Address [address] [place] [address] Organization [facility] Care Team Providers Care Meal Cooker Name Role Phone [facility] Unavailable Unavailable Problems Problem Status Onset Date Problem Type Date of Resolution Comments Source Benign prostatic hypertroph with outflow obstruction (disorder) Active Condition Malignant tumor of penis (disorder) Active Condition Stenosis of urinary meatus (disorder) Active Condition Essential (primary) hypertension Diagnosis Other retention of urine Diagnosis Abdominal aortic aneurysm, without rupture Diagnosis Atherosclerotic heart disease of picayune coronary artery without angina pectoris Diagnosis Hyperlipidemia, unspecified Diagnosis Old myocardial infarction Diagnosis Nicotine dependence, unspecified, uncomplicated Diagnosis Body mass index (BMI) 37.0-37.9, adult Diagnosis Severe intellectual disabilities Diagnosis Infestation, unspecified Diagnosis Pruritus, unspecified Diagnosis Enlarged prostate without lower urinary tract symptoms Diagnosis Malignant Neoplasm of Penis, Part Unspecified Active Diagnosis Other specified disorders of the skin and subcutaneous tissue Active Diagnosis Malignant Neoplasm of Glans Penis Active Diagnosis Allergies, Adverse Reactions, Alerts Substance Category Reaction Severity Reaction type Status Date Reported Comments Source No Known Latex Allergy Assertion Allergy to substance Active [facility] Chantix Assertion Drug allergy Active [facility] NKA Assertion Drug allergy Active [facility] Encounters Location Location Details Encounter Type Encounter Number Reason For Visit Attending Provider ADM Date DC Date Status Source [facility] OUTPATIENT [id number] 1YRFU/( C60.9) [facility] Care [id number] 1YRFU/( C60.9) [facility]IEL CAN[facility]ER [facility] CRH CR OUTPT ANCILLARY [id number] Abel [place] [facility] OUTPATIENT [id number] PENILE [facility] OUTPATIENT [id number] [facility]ENILE CANCER [facility] Ancillaries [facility] OUTPATIENT [id number] PET@100 :1M FU Abel [place] Cancel [facility] Ancillaries EFS EFS DIAGNOSTIC TEST [id number] CHEST XRAY;PE NILE CANCER Abel Moncada Cancel [facility] CRH DIAGNOSTIC TEST [id number] PENILE CANCER Abel [place] Cancel [facility] CRH CRH CRH DIAGNOSTIC TEST [id number] Penile Cancer Abel [place] Cancel [facility] AMAURY AMAURY OUTPATIENT [id number] FOLLOW UP WITH CT [facility] OUTPATIENT [id number] FOLLOW UP [facility] OUTPATIENT [id number] 6mfu/(c 60.9)(c 40.1)bp h [facility] Ancillaries [facility] DIAGNOSTIC TESTING [id number] 6mfu/(c 60.9)(c 40.1)bp h Abel [place] Cancel [facility] Ancillaries EFS EFS DIAGNOSTIC TEST [id number] xr chest Abel [place] Cancel [facility] OUTPATIENT [id number] 2mfu/ct / Abel [place] Cancel [facility] Ancillaries [facility] OUTPATIENT [id number] 2mfu/ct / Abel [place] Cancel [facility] Ancillaries EFS EFS DIAGNOSTIC TEST [id number] xr chest Abel [place] Cancel [facility] POC POC NO TECHBILL [id number] 3-31 nurse phone call [phone] [facility] Pre[facility] e [facility] OUTPATIENT [id number] FOLLOW- UP [facility]MA[facility] AMAUR[facility] OUTPATIENT [id number] 4 WK FU WITH PET [facility] OUTPATIENT [id number] 2WFU/PE RUBEN CANCER [facility] AMAURY AMAURY OUTPATIENT [id number] 1 MTH CATH CHANGE [facility] AMAURY AMAURY OUTPATIENT [id number] 4 WK FU CATH CHANGE [facility] AMAURY AMAURY OUTPATIENT [id number] 4 WK FU CATH CHANGE [facility] AMAURY AMAURY OUTPATIENT [id number] RUEDA CHANGE [facility] OUTPATIENT [id number] RUEDA CHANGE [facility] AMA[facility] AMA[facility] OUTPATIENT [id number] RUEDA CHANGE [facility] AMAURY AMAURY OUTPATIENT [id number] RUEDA CHANGE [facility] Procedures Procedure Code Date Perfomer Comments Source tonsillectomy/ Adenoidectomy [facility] excision of penile lesion, c ystoscopy 11/19/15 [facility] T&A [facility]
--- OUTSIDE RECORDS SUMMARY | 2025-02-02 18:48 | XMS_ITS | Clinical Summary ---
Author Organization [facility] [address] Address [address] [place] [address] Care Team Providers Care Skate Maker Name Role Phone Unavailable Primary Care Provider Unavailabl e Allergies No known active allergies Medications aspirin (DEANA) 325 mg tablet Take 325 mg by mouth daily. Active lisinopril (PRINIVIL) 40 mg tablet Take 40 mg by mouth daily. Active OMEGA-3 FATTY ACIDS/FISH OIL (OMEGA 3 FISH OIL ORAL) Take by mouth. Active metoprolol succinate ER 24 hour (TOPROL-XL) 50 mg tablet Take 75 mg by mouth daily . Active HYDROcodone-acet aminophen (NORCO) 7.5-325 mg Tablet Take 1 Tab by mouth every 4 hours as needed for Pain, Moderate. Active finasteride (PROSCAR) 5 mg tablet TAKE ONE TABLET BY MOUTH ONCE DAILY 30 Tablet 5 03/12/2016 Active diclofenac sodium (VOLTAREN) 75 mg Tablet, Delayed Release (E.C.) Take 1 Tablet (75 mg) by mouth 3 times daily as needed for Pain. 90 Tablet 6 03/19/2016 Active meloxicam (MOBIC) 15 mg tablet TAKE ONE TABLET BY MOUTH ONCE DAILY 30 Tablet 1 08/19/2016 Active atorvastatin (LIPITOR) 40 mg tablet Take 40 mg by mouth daily with supper. 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 Problems No known active problems Social History Tobacco Use Types Packs/Day Years Used Date Smoking Tobacco: Every Day Cigarettes 1 50 Smokeless Tobacco: Never Alcohol Use Standard Drinks/Week Comments Not Asked 0 (1 standard drink = 0.6 oz pur e alcohol) Sex and Gender Information Value Date Recorded Sex Assigned at Not on file Legal Sex Male 10:43 AM CDT Gender Identity Not on file Sexual Orientation Not on file Last Filed Vital Signs Vital Sign Reading Time Taken Comments Blood Pressure 118/80 08/23/2019 12:58 PM ANALYTICS ASSOCIATE Pulse 75 08/23/2019 12:58 PM ANALYTICS ASSOCIATE Temperature 36.5 C (97.7 F) 03/19/2016 1:14 PM CDT Respiratory Rate 20 03/19/2016 1:14 PM CDT Oxygen Saturation 90% 03/19/2016 1:14 PM CDT Inhaled Oxygen Concentration - - Weight 121.6 kg (268 lb) 08/23/2019 12:58 PM ANALYTICS ASSOCIATE Height 180.3 cm (5' 11 ) 08/23/2019 12:58 PM ANALYTICS ASSOCIATE Body Mass Index 37.38 08/23/2019 12:58 PM ANALYTICS ASSOCIATE Plan of Treatment Health Maintenance Due Date Last Done Comments DTAP/TDAP/TD VACCINES (1 - Tdap) 1966 PNEUMOCOCCAL VACCINE 50+ YEARS (1 of 2 - PCV) 01/05/19 66 ZOSTER VACCINE (1 of 2) 1997 RSV VACCINE (60+ or ) (1 - 1-dose 75+ series) 2022 INFLUENZA VACCINE (#1) 2025 Insurance MEDICARE PART A AND B Within3 INS CO
--- OUTSIDE RECORDS SUMMARY | 2025-02-02 18:48 | XMS_ITS | Patient Health Record ---
Author Organization [email or web address] [facility] Address [address] [place] [address] Care Team Providers Care Cold Roll Operator Name Role Phone Ming Flores DO Primary Care Provider Unavailab martínez TURPINSERA Unavailable [phone] ADAM VELAZQUEZ Unavailable [phone] SAMUEL RUSSELL Unavailable [phone] Adam Mike Unavailable [phone] Allergies Allergen (clinical drug ingredient) Drug/Non Drug Allergy documented on EMR Reaction Allergy Type Onset Date Status Diclofenac Unknown Drug Allergy Active varenicline Varenicline Unknown Drug Allergy Act gurmeet Results Component Value Reference Range Notes Urinalysis, Routine Reviewed date:05/30/2024 04:14:05 PM Interpretation: Performing Lab: Notes/Report: Urine-Color Yellow Appearance turbid Glucose - Bilirubin - Ketones - Specific App[place] 1.025 Occult Blood 3+ pH 6.0 Urine Protein 1+ Urobilinogen,Semi-Qn 0.2 Nitrite, Urine - WBC Esterase 3+ Gx - Recurrent Persistent Co mplicated UTI Reviewed date:06/02/2024 08:14:18 AM Interpretation: Performing Lab:, [id number] Notes/Report: PatientName: : Gender: PatientRelation: PatientAddress: , , , InsuranceName: InsuranceCode: Test Result: Guidance 7.0, Voided Urine, UTI Surgical, Test Result: PATHOGENIC DNA DETECTED#A*F UTIAbnormalFlag: Guidance 7.0, Voided Urine, UTI Surgical, UTIAbnormalFlag: A UTI Pathogen Panel PCR Reviewed date:11/21/2024 12:31:03 PM Interpretation: Performing Lab: Notes/Report: Urinalysis, Routine Reviewed date:11/20/2024 03:03:54 PM Interpretation: Performing Lab: Notes/Report: Urine-Color Yellow Appearance Clear Glucose - Bilirubin - Ketones - Specific [place]legate 1.030 Occult Blood 3+ pH 6.0 Urine Protein - Urobilinogen,Semi-Qn 0.2 Nitrite, Urine - WBC Esterase 3+ UTI Resistance Panel PCR Reviewed date:11/21/2024 12:31:58 PM Interpretation: Performing Lab: Notes/Report: Urinalysis, Routine Reviewed date:05/02/2024 02:57:02 PM Interpretation: Performing Lab: Notes/Report: Urine-Color yellow Appearance clear Glucose - Bilirubin - Ketones - Specific Applegate 1.020 Occult Blood - pH 6.0 Urine Protein - Urobilinogen,Semi-Qn - Nitrite, Urine - WBC Esterase 2+ UTI Pathogen Panel PCR Reviewed date:04/06/2024 01:09:10 PM Interpretation: Performing Lab: Notes/Report: UTI Resistance Panel PCR Reviewed date:04/06/2024 01:10:13 PM Interpretation: Performing Lab: Notes/Report: Urinalysis, Routine Reviewed date:04/04/2024 05:13:34 PM Interpretation: Performing Lab: Notes/Report: Urine-Color red Appearance slightly cloudy w/blood Reason For Referral No Information Medications Medication SIG (Take, Route, Frequency, Duration) Notes Start Date End Date Status Vitamin C 1000 MG 1 tablet Orally twice a day Active Early 3 Active Spiriva HandiHaler A ctive Aspirin 81 MG 1 tablet Orally Once a day Active Turmeric Active Meloxicam Active Clopidogrel Bisulfate 75 MG 1 tablet Orally Once a day Active Tamsulosin HCl 0.4 MG 1 capsule Orally Once a day Active Eliquis 5 MG as directed Orally Active Atorvastatin Calcium Active Metoprolol Succinate Active Bumex 0.5 MG 1 tablet Orally Once a day 1mg Active Finasteride 5 MG 1 tablet Orally Once a day Active HYDROcodone-Acetaminophen Not-Taking Lasix 40 MG 1 tablet Orally Once a day 09/25/2024 Active Cholecalciferol Acti ve Methenamine Hippurate 1 GM 1 tablet Oral ly twice daily for 90 days 09/25/2024 09/20/2025 Active Social History Tobacco Use: Social History Observation Description Date Details (start date - stop date) Current Smoker NA - NA Tobacco Control (Standard) Question Answer Notes Tobacco use: Current smoker How often do you smoke cigarettes? Every day How many cigarettes a day do you smoke? 11-20 Problems Problem Type SNOMED Code ICD Code Onset Dates Problem Status W/U Status Risk Notes Problem Neurogenic bladder (701520398) Neurogenic bladder (N31.9) Active confirmed Problem Urinary tract infectious disease (08064380) Bacteria in urine (N39.0) Active confirmed Problem Urethral stricture (disorder) (29664719) Urethral stricture unspecified (N35.919) Active confirmed Problem Change of urinary catheter bag (procedure) (222944627) Catheter (urine) change required (Z46.6) Active confirmed Problem History of penile cancer (Z85.49) Active confirmed Problem 269585223 Urinary retention (R33.9) Active confirmed Problem 577615122 Manley catheter in place (Z92.89) Active confirmed Problem 508489375 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 Problem 631041264 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) Active confirmed Vital Signs Heart Rate 67 /min 01/15/2025 Temperature 97.8 degrees Fahrenheit 03/06/2024 Height-cm 181.61 cm 01/15/2025 Blood pressure diastolic 71 mm Hg 01/15/2025 Weight-kg 107.96 kg 01/15/2025 Height 71.5 in 01/15/2025 Blood pressure systolic 104 mm Hg 01/15/2025 Weight 238 lbs 01/15/2025 BMI 32.73 kg/m2 01/15/2025 Procedures Procedure Date Ordered Date Performed Result Body Sit e Cathter Insertion, COMPLEX 03/06/2024 03/06/2024 N/A SP Tube Change 04/04/2024 04/04/2024 N/A Catheter Insertion-Routine 05/02/2024 05/02/2024 N/A SP Tube Change 05/30/2024 05/30/2024 N/A SP Tube Change 06/27/2024 06/27/2024 N/A SP Tube Change 07/25/2024 07/25/2024 N/A SP Tube Change 08/28/2024 08/29/2024 N/A SP Tube Change 09/25/2024 09/25/2024 N/A Catheter Insertion-Routine 10/23/2024 10/23/2024 N/A SP Tube Change 11/20/2024 11/20/2024 N/A SP Tube Change 12/18/2024 12/19/2024 N/A Catheter Insertion-Routine 01/15/2025 N/A Encounters Encounter Location Date Provider Diagnosis [facility] [address] [place] [address] 03/06/2024 SERA TURPIN Urethral stricture unspecified N35.919 ; History of penile cancer Z85.49 and Catheter (urine) change required Z46.6 [facility] [address] [place] [address] 04/04/2024 Adam Pevril Catheter (urine) change required Z46.6 ; Urinary retention R33.9 ; Complicated UTI (urinary tract infection) N39.0 and Scrotal edema N50.89 [facility], [facility] [address] [place] [address] 05/02/2024 SERA TURPIN Catheter (urine) change required Z46.6 ; Manley catheter in place Z92.89 and History of penile cancer Z85.49 [facility] [address] [place] [address] 05/30/2024 ADAM VELAZQUEZ Complicated UTI (urinary tract infection) N39.0 ; Urinary retention R33.9 and Encounter for attention to cystostomy Z43.5 [facility] [address] [place] [address] 06/27/2024 SAMUEL REANO Catheter (urine) change required Z46.6 and Urinary retention R33.9 [facility] [address] [place] [address] 07/25/2024 ADAM VELAZQUEZ Urinary retention R33.9 and Catheter (urine) change required Z46.6 [facility] [address] [place] [address] 08/28/2024 SERA TURPIN Urinary retention R33.9 and Catheter (urine) change required Z46.6 [facility] [address] [place] [address] 09/25/2024 SERA TURPIN Catheter (urine) change required Z46.6 [facility] [address] [place] [address] 10/23/2024 SERA TURPIN Catheter (urine) change required Z46.6 and Manley catheter in place Z92.89 [facility] [address] [place] [address] 11/20/2024 SERA TURPIN Catheter (urine) change required Z46.6 ; History of penile cancer Z85.49 and Complicated UTI (urinary tract infection) N39.0 [facility], [facility] [address] [place] [address] 12/18/2024 SAMUEL HOOKSANO Encounter for attention to cystostomy Z43.5 and Urinary retention R33.9 [facility], [facility] [address] [place] [address] 01/15/2025 SAMUEL REANO Catheter (urine) change required Z46.6 and Neurogenic bladder N31.9 [facility], [facility] [address] [place] [address] 04/06/2024 Adam Pevril [facility], [facility] [address] [place] [address] 06/02/2024 Adam Pevril [facility] [address] [place] [address] 07/25/2024 SERA TURPIN [facility], [facility] [address] [place] [address] 09/04/2024 SERA TURPIN [facility], [facility] [address] [place] [address] 09/05/2024 SERA TURPIN [facility], [facility] [address] [place] [address] 11/21/2024 SAMUEL REANO [facility], [facility] [address] [place] [address] 11/21/2024 SERA TURPIN Assessments Encounter Date Diagnosis (ICD Code) Assessment Notes Treatment Notes Treatment Clinical Notes Section Notes 03/06/2024 Urethral stricture unspecified (ICD-10 - N35.919) 79 y/o M with h/o penile SCC, s/p total penectomy, b/l inguinal lymphadenectomy and urethral stricture. He is managed with chronic manley via perineal urethrostomy. I have independently reviewed imaging, along with radiologic report. CT obtained on 02/28/24 reviewed during consult and patient was reassured he has no evidence for recurrence. Manley changed today and will continue q4w. Continue flomax and finasteride.. He will return in 1yr with UA/PVR or sooner with any concerns. Plan: - Continue with Manley exchange q.4 weeks - Continue Flomax and finasteride - RTC in 1yr with UA/PVR - RTC or call sooner with any concerns IJuju Scribe, am scribing for, and in the presence of, Dr. Turpin. I, Dr. Sera Turpin, personally performed the services prescribed in this documentation, as scribed by Juju Powell, in my presence, and it is both accurate and complete. 03/06/2024 History of penile cancer (ICD-10 - Z85.49) 79 y/o M with h/o penile SCC, s/p total penectomy, b/l inguinal lymphadenectomy and urethral stricture. He is managed with chronic manley via perineal urethrostomy. I have independently reviewed imaging, along with radiologic report. CT obtained on 02/28/24 reviewed during consult and patient was reassured he has no evidence for recurrence. Manley changed today and will continue q4w. Continue flomax and finasteride.. He will return in 1yr with UA/PVR or sooner with any concerns. Plan: - Continue with Manley exchange q.4 weeks - Continue Flomax and finasteride - RTC in 1yr with UA/PVR - RTC or call sooner with any concerns IJuju Scribe, am scribing for, and in the presence of, Dr. Turpin. I, Dr. Sera Turpin, personally performed the services prescribed in this documentation, as scribed by Juju Powell, in my presence, and it is both accurate and complete. 05/30/2024 Complicated UTI (urinary tract infection) (ICD-10 - N39.0) Pt here for routine sptube change and he tolerated well. Pt notes to have had bladder pain, spasms and discomfort that has worsened within the last wk; noting that his manley catheter has even clogged a few times. UA was obtained and will be sent for PCR testing to rule out UTI. He will be treated accordingly to results. This patient has clinical indication for infectious disease testing. Urinalysis performed indicates the need for further sensitive detection by PCR. The patient is at higher risk for UTI complications and is being seen in the urologic setting. The enhanced diagnostic accuracy, identification of possible resistance mutations, and quicker result to better guide antibiotics and prevention infection complications that PCR provides is recommended. Otherwise he will return in 4wks for repeat tube change. 05/30/2024 Urinary retention (ICD-10 - R33.9) Pt here for routine sptube change and he tolerated well. Pt notes to have had bladder pain, spasms and discomfort that has worsened within the last wk; noting that his manley catheter has even clogged a few times. UA was obtained and will be sent for PCR testing to rule out UTI. He will be treated accordingly to results. This patient has clinical indication for infectious disease testing. Urinalysis performed indicates the need for further sensitive detection by PCR. The patient is at higher risk for UTI complications and is being seen in the urologic setting. The enhanced diagnostic accuracy, identification of possible resistance mutations, and quicker result to better guide antibiotics and prevention infection complications that PCR provides is recommended. Otherwise he will return in 4wks for repeat tube change. 06/27/2024 Catheter (urine) change required (ICD-10 - Z46.6) Pt here for routine manley change. He notes that his symptoms have subsided since he completed his ABX for previous infection. He tolerated manley change well and will return in 4wks for routine change. 06/27/2024 Urinary retention (ICD-10 - R33.9) Pt here for routine manley change. He notes that his symptoms have subsided since he completed his ABX for previous infection. He tolerated manley change well and will return in 4wks for routine change. 07/25/2024 Catheter (urine) change required (ICD-10 - Z46.6) Pt here for routine manley change. He tolerated manley change well and will return in 4wks for routine change. 07/25/2024 Urinary retention (ICD-10 - R33.9) Pt here for routine manley change. He tolerated manley change well and will return in 4wks for routine change. 10/23/2024 Catheter (urine) change required (ICD-10 - Z46.6) 10/23/[address] (ICD-10 - Z92.89) 01/15/2025 Neurogenic bladder (ICD-10 - N31.9) Pt here today fo r routine cath change. Pt tolerated well. will return for 4 week change. 01/15/2025 Catheter (urine) change required (ICD-10 - Z46.6) Pt here today fo r routine cath change. Pt tolerated well. will return for 4 week change. 11/20/2024 Catheter (urine) change required (ICD-10 - Z46.6) Pt here for routine catheter change. He tolerated well and will return in 4wks for repeat change. Pt also noted that he has had some sediment in his urine, lower back pain and pelvic discomfort at times. UA obtained and will be sent for testing. pt will be treated accordingly to results. 04/04/2024 Urinary retention (ICD-10 - R33.9) Pt here for routine manley change. He has c/o Dark yellow urine w/white clots. Manley has been a bother since day 2. Swollen scrotum x2-3wks. Per Mona Mike APRN, he performed exam and recommended Rx of Levaquin 500mg [id number]. UA was obtained and will be sent for PCR testing. ABX will change if indicated. This patient has clinical indication for infectious disease testing. Urinalysis performed indicates the need for further sensitive detection by PCR. The patient is at higher risk for UTI complications and is being seen in the urologic setting. The enhanced diagnostic accuracy, identification of possible resistance mutations, and quicker result to better guide antibiotics and prevention infection complications that PCR provides is recommended. He will return is scrotal edema worsens otherwise he will return in 4wks for routine manley change. 11/20/2024 History of penile cancer (ICD-10 - Z85.49) Pt here for routine catheter change. He tolerated well and will return in 4wks for repeat change. Pt also noted that he has had some sediment in his urine, lower back pain and pelvic discomfort at times. UA obtained and will be sent for testing. pt will be treated accordingly to results. 08/28/2024 Catheter (urine) change required (ICD-10 - Z46.6) Pt here for routine Manley change. He tolerated well and will return in 4wks for repeat change. 08/28/2024 Urinary retention (ICD-10 - R33.9) Pt here for routine Manley change. He tolerated well and will return in 4wks for repeat change. 04/04/2024 Catheter (urine) change required (ICD-10 - Z46.6) Pt here for routine manley change. He has c/o Dark yellow urine w/white clots. Manley has been a bother since day 2. Swollen scrotum x2-3wks. Per Mona Mike APRN, he performed exam and recommended Rx of Levaquin 500mg [id number]. UA was obtained and will be sent for PCR testing. ABX will change if indicated. This patient has clinical indication for infectious disease testing. Urinalysis performed indicates the need for further sensitive detection by PCR. The patient is at higher risk for UTI complications and is being seen in the urologic setting. The enhanced diagnostic accuracy, identification of possible resistance mutations, and quicker result to better guide antibiotics and prevention infection complications that PCR provides is recommended. He will return is scrotal edema worsens otherwise he will return in 4wks for routine manley change. 12/18/2024 Encounter for attention to cystostomy (ICD-10 - Z43.5) Pt here for routine sptube change. He tolerated well and will return in 4wks for repeat change. 12/18/2024 Urinary retention (ICD-10 - R33.9) Pt here for routine sptube change. He tolerated well and will return in 4wks for repeat change. 09/25/2024 Catheter (urine) change required (ICD-10 - Z46.6) Pt here for routine manley change. He tolerated well and will return in 4wks for repeat change. Refilled pt's Methenamine per request. 05/02/2024 Catheter (urine) change required (ICD-10 - Z46.6) 05/02/[address] (ICD-10 - Z92.89) 05/02/2024 History of penile cancer (ICD-10 - Z85.49) 04/04/2024 Complicated UTI (urinary tract infection) (ICD-10 - N39.0) Pt here for routine manley change. He has c/o Dark yellow urine w/white clots. Manley has been a bother since day 2. Swollen scrotum x2-3wks. Per Mona Mike APRN, he performed exam and recommended Rx of Levaquin 500mg [id number]. UA was obtained and will be sent for PCR testing. ABX will change if indicated. This patient has clinical indication for infectious disease testing. Urinalysis performed indicates the need for further sensitive detection by PCR. The patient is at higher risk for UTI complications and is being seen in the urologic setting. The enhanced diagnostic accuracy, identification of possible resistance mutations, and quicker result to better guide antibiotics and prevention infection complications that PCR provides is recommended. He will return is scrotal edema worsens otherwise he will return in 4wks for routine manley change. 11/20/2024 Complicated UTI (urinary tract infection) (ICD-10 - N39.0) Pt here for routine catheter change. He tolerated well and will return in 4wks for repeat change. Pt also noted that he has had some sediment in his urine, lower back pain and pelvic discomfort at times. UA obtained and will be sent for testing. pt will be treated accordingly to results. 05/30/2024 Encounter for attention to cystostomy (ICD-10 - Z43.5) Pt here for routine sptube change and he tolerated well. Pt notes to have had bladder pain, spasms and discomfort that has worsened within the last wk; noting that his manley catheter has even clogged a few times. UA was obtained and will be sent for PCR testing to rule out UTI. He will be treated accordingly to results. This patient has clinical indication for infectious disease testing. Urinalysis performed indicates the need for further sensitive detection by PCR. The patient is at higher risk for UTI complications and is being seen in the urologic setting. The enhanced diagnostic accuracy, identification of possible resistance mutations, and quicker result to better guide antibiotics and prevention infection complications that PCR provides is recommended. Otherwise he will return in 4wks for repeat tube change. 03/06/2024 Catheter (urine) change required (ICD-10 - Z46.6) 79 y/o M with h/o penile SCC, s/p total penectomy, b/l inguinal lymphadenectomy and urethral stricture. He is managed with chronic manley via perineal urethrostomy. I have independently reviewed imaging, along with radiologic report. CT obtained on 02/28/24 reviewed during consult and patient was reassured he has no evidence for recurrence. Manley changed today and will continue q4w. Continue flomax and finasteride.. He will return in 1yr with UA/PVR or sooner with any concerns. Plan: - Continue with Manley exchange q.4 weeks - Continue Flomax and finasteride - RTC in 1yr with UA/PVR - RTC or call sooner with any concerns IJuju Scribe, am scribing for, and in the presence of, Dr. Turpin. I, Dr. Sera Turpin, personally performed the services prescribed in this documentation, as scribed by Juju Powell, in my presence, and it is both accurate and complete. 04/04/2024 Scrotal edema (ICD-10 - N50.89) Pt here for routine manley change. He has c/o Dark yellow urine w/white clots. Manley has been a bother since day 2. Swollen scrotum x2-3wks. Per Mona Mike APRN, he performed exam and recommended Rx of Levaquin 500mg [id number]. UA was obtained and will be sent for PCR testing. ABX will change if indicated. This patient has clinical indication for infectious disease testing. Urinalysis performed indicates the need for further sensitive detection by PCR. The patient is at higher risk for UTI complications and is being seen in the urologic setting. The enhanced diagnostic accuracy, identification of possible resistance mutations, and quicker result to better guide antibiotics and prevention infection complications that PCR provides is recommended. He will return is scrotal edema worsens otherwise he will return in 4wks for routine manley change. Plan Of Treatment Pending Test Test Name Order Date SP Tube Change 08/05/2023 SP Tube Change 06/01/2023 CT ABD PELVIS W and WO ORAL CONTRAST [id number] 12/13/2023 Catheter Insertion-Routine 01/15/2025 Catheter Insertion-Routine 09/06/2023 Catheter Insertion-Routine 11/02/2023 Catheter Insertion-Routine 01/04/2024 CT Abdomen, Pelvis w/ + w/o Contrast--[id number] 12/14/2023 Next Appt Details Provider Name:SERA Brown, 02/12/2025 02:00:00 PM, [address] [place], [address], Provider Name:SERA Brown, 03/08/2025 02:20:00 PM, [address] [place], [address], Insurance Providers Payer Name Payer Address Payer Phone Subscriber Number Group Number Insured Name Patient Relationship to Insured Coverage Start Date Coverage End Date [place] [address] [place] [id number] Jose R Hannah Self - patient is the insured [employer] [place] [address] [place], [place] [id number] Jose R Hannah Self - patient is the insured Medical (General) History Medical History History ICD Code penile cancer hypertension back trouble recurrent bladder infections heart disease arthritis Surgical History Surgery Date(Month/Year) hip replacement, right penile removal with lymph node removal Hospitalization History Reason Date(Month/Year) surgery
--- OUTSIDE RECORDS SUMMARY | 2025-02-02 18:48 | XMS_ITS | Patient Health Record ---
Author Organization [facility] Address [address] [place] [address] Care Team Providers Care Sales Secretary Name Role Phone Ming Flores DO Primary Care Provider Unavailab Adam Villalpando Unavailable [phone] Allergies Allergen (clinical drug ingredient) Drug/Non Drug Allergy documented on EMR Reaction Allergy Type Onset Date Status Diclofenac Unknown Drug Allergy Active varenicline Varenicline Unknown Drug Allergy Act gurmeet Reason For Referral No Information Medications Medication SIG (Take, Route, Frequency, Duration) Notes Start Date End Date Status Metoprolol Succinate Active Meloxicam Active Methenamine Hippurate 1 GM Tablet 1 tablet Orally Twice a day Active Aspirin 81 MG Tablet Delayed Release 1 tablet Orally Once a day Active Tamsulosin HCl 0.4 MG Capsule 1 capsule Orally Once a day Active Hydrocodone Bitartrate Active [place] 3 Active Turmeric Active Spiriva HandiHaler A ctive Finasteride 5 MG Tablet 1 tablet Orally Once a day Active Cholecalciferol Acti ve Atorvastatin Calcium Active Social History Tobacco Use: Social History Observation Description Date Details (start date - stop date) Current Smoker NA - NA Social History Tobacco Use: Social Info Question Answer Notes xTobacco Use/Smoking Are you a current smoker Problems Problem Type SNOMED Code ICD Code Onset Dates Problem Status W/U Status Risk Notes Problem Urinary retention (285459780) Urinary retention (R33.9) Active confirmed Problem Catheterization of urinary bladder (245154120) Garrison catheter in place (Z92.89) Active confirmed Problem Benign prostatic hypertrophy with outflow obstruction (228378105) 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) Active confirmed Problem Change of urinary catheter bag (procedure) (507258071) Catheter (urine) change required (Z46.6) Active confirmed Problem Squamous cell carcinoma of penis (403411125) 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 Problem History of penile cancer (Z85.49) Active confirmed Plan Of Treatment No Information Insurance Providers Payer Name Payer Address Payer Phone Subscriber Number Group Number Insured Name Patient Relationship to Insured Coverage Start Date Coverage End Date [place] [address] [place] [phone] [id number] Iglesia Hannah Self - patient is the insured [employer] [address] [place] [phone] [id number] Iglesia Hannah Self - patient is the insured Medical (General) History Medical History History ICD Code penile cancer hypertension back trouble recurrent bladder infections heart disease arthritis Surgical History Surgery Date(Month/Year) penile removal with lymph node removal hip replacement, right
--- OUTSIDE RECORDS SUMMARY | 2025-02-02 18:48 | XMS_ITS | Clinical Summary ---
Author Organization [facility] Address [address] [place]: Epic Prelude ADT [place]AN [id number] Care Team Providers Care Oracle Data Warehouse Developer Name Role Phone Unavailable Primary Care Provider Unavailabl e Allergies No known active allergies Medications atorvastatin (LIPITOR) 40 mg tablet Take 40 mg by mouth daily with supper. 08/23/2019 Active levothyroxine 25 mcg tablet Take 25 mcg by mouth daily training developer. 08/23/2019 Active meloxicam (MOBIC) 15 mg tablet TAKE ONE TABLET BY MOUTH ONCE DAILY 30 Tablet 1 08/19/2016 Active diclofenac sodium (VOLTAREN) 75 mg Tablet, Delayed Release (E.C.) Take 1 Tablet (75 mg) by mouth 3 times daily as needed for Pain. 90 Tablet 6 03/19/2016 Active finasteride (PROSCAR) 5 mg tablet TAKE ONE TABLET BY MOUTH ONCE DAILY 30 Tablet 5 03/12/2016 Active HYDROcodone-acet aminophen (NORCO) 7.5-325 mg Tablet Take 1 Tab by mouth every 4 hours as needed for Pain, Moderate. 11/22/2014 Active Encounters Date Type Department Care Team Description 12/05/2024 External Device Data [facility] ABSTRACTION Provider, Abstract 11/30/2024 External Device Data [facility] ABSTRACTION Provider, Abstract 11/29/2024 External Device Data [facility] ABSTRACTION Provider, Abstract 11/28/2024 External Device Data [facility] ABSTRACTION Provider, Abstract from Last 3 Months Social History Tobacco Use Types Packs/Day Years Used Date Smoking Tobacco: Every Day Cigarettes Smokeless Tobacco: Never Alcohol Use Standard Drinks/Week Comments Not Asked 0 (1 standard drink = 0.6 oz pur e alcohol) Sex and Gender Information Value Date Recorded Sex Assigned at Not on file 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 Gender Identity Not on file Sexual Orientation Not on file Last Filed Vital Signs Vital Sign Reading Time Taken Comments Blood Pressure 118/80 08/23/2019 12:58 PM GRAIN PROCESSOR Pulse 75 08/23/2019 12:58 PM GRAIN PROCESSOR Temperature 36.5 C (97.7 F) 03/19/2016 1:14 PM CDT Respiratory Rate 20 03/19/2016 1:14 PM CDT Oxygen Saturation - - Inhaled Oxygen Concentration - - Weight 121.6 kg (268 lb) 08/23/2019 12:58 PM GRAIN PROCESSOR Height 180.3 cm (5' 11 ) 08/23/2019 12:58 PM GRAIN PROCESSOR Body Mass Index 37.38 08/23/2019 12:58 PM GRAIN PROCESSOR Plan of Treatment Health Maintenance Due Date Last Done Comments DTAP/TDAP/TD VACCINES (1 - Tdap) 1966 PNEUMOCOCCAL VACCINE 50+ YEARS (1 of 2 - PCV) 01/05/19 66 ZOSTER VACCINE (1 of 2) 1997 RSV VACCINE (60+ or ) (1 - 1-dose 75+ series) 2022 INFLUENZA VACCINE (#1) 2025
[2025-02-02 19:08] VITALS: BP 115/71; PULSE 69; RESP 16; TEMP 36.7; O2SAT 93; BMI 32.5
[2025-02-02 19:34] LABS: Hematocrit 40.8 % (37-53); Hemoglobin 13.70 g/dL (11.27-16.99); Mean Corpuscular HGB Conc 33.6 g/dL (30-55); Mean Corpuscular Hemoglobin 29.5 pg (27-33); Mean Corpuscular Volume 87.7 fl (82-101); Nucleated Red Blood Cells % 0 %; Platelet Count 88 10^3/cmm (157-399); Red Blood Count 4.65 10^6/uL (3.85-5.65); White Blood Count 8.22 10^3/uL (3.29-11.43)
[2025-02-02 20:00] LABS: Alanine Aminotransferase 15 U/L (0-41); Albumin Level 4.2 g/dL (3.5-5.2); Alkaline Phosphatase 56 U/L (40-130); Anion Gap 17.9 (5-19); Aspartate Amino Transferase 15 U/L (0-40); Blood Urea Nitrogen 12 mg/dL (8-23); Calcium 9.0 mg/dL (8.5-10.5); Carbon Dioxide 25 mmol/L (22-29); Chloride 96 mmol/L (98-107); Creatinine Clr Calc Pharmacy 94.1354; Globulin 2.5 g/dL (1.3-4.6); Glucose 84 mg/dL (65-115); Osmolality Calculated 279 mOsm/kg (285-295); Potassium 3.9 mmol/L (3.5-5.1); Sodium 135 mmol/L (136-145); Total Protein 6.7 g/dL (6.6-8.7)
[2025-02-02 22:00] LABS: Glucose Urine UA Negative (Normal); Nitrate Urine Positive (Negative); Specific Gravity, Urine 1.008 (1.005-1.030)
[2025-02-02 22:07] LABS: Add Urine Microscopic? YES
[2025-02-02 22:12] LABS: UA Slide Review UA Slide Review Perf
--- NOTE | 2025-02-02 22:16 | W.ED.RECABL ---
HPI - Recheck/Abnormal Lab/Rx General: Chief Complaint: Recheck/Abnormal Lab/Rx Stated Complaint: Bp issues weakness Time Seen by Provider: 02/02/25 22:08 History of Present Illness: 80-year-old male gentleman complaining of generalized weakness, fatigue, and low blood pressures at home. Evidently his blood pressure was in the 70s systolic earlier in the evening. He says his blood pressure has been steadily going down slowly. No new medications. No fever. He does feel little bit at night he says. He has a chronic indwelling Garrison catheter. He has not had a cough, chest pain, etc. He has not had syncopal episodes associated with his blood pressure being low. Related Data Home Medications ?Medication ?Instructions ?Recorded ?Confirmed atorvastatin 40 mg tablet 40 mg PO DAILY 07/25/19 01/16/25 cholecalciferol (vitamin D3) 50 2,000 unit PO DAILY 07/25/19 01/16/25 mcg (2,000 unit) tablet finasteride 5 mg tablet 5 mg PO DAILY 07/25/19 01/16/25 tamsulosin 0.4 mg capsule 0.4 mg PO DAILY 07/25/19 01/16/25 meloxicam 15 mg tablet 15 mg PO DAILY 03/21/20 01/16/25 ascorbic acid (vitamin C) 500 mg 500 mg PO DAILY 01/22/21 01/16/25 tablet omega-3 fatty acids 1,000 mg 1,000 mg PO BID 10/13/21 01/16/25 capsule fluticasone propionate 50 1 spray intranasal DAILY PRN nasal 10/30/21 01/16/25 mcg/actuation nasal congestion spray,suspension turmeric root extract 500 mg 500 mg PO DAILY 10/30/21 01/16/25 capsule loratadine 10 mg tablet (Allergy 10 mg PO DAILY 12/31/21 01/16/25 Relief (loratadine)) [id number] 300 mcg-K 60 1 tab PO DAILY 09/21/23 01/16/25 mcg-lycop 600 mcg-lutein 300 mcg tablet (Centrum Silver Men) Previous Rx's ?Medication ?Instructions ?Recorded tiotropium bromide 18 mcg capsule 1 cap inhalation DAILY #60 06/19/24 with inhalation device (Spiriva inhalations with HandiHaler) metoprolol succinate 100 mg 50 mg (1/2 x 100 mg) PO DAILY #90 08/16/24 tablet,extended release 24 hr tabs apixaban 5 mg tablet 5 mg PO BID #180 tabs 01/16/25 clopidogrel 75 mg tablet 75 mg PO DAILY #90 tabs 01/16/25 cefdinir 300 mg capsule 300 mg PO BID #14 caps 02/03/25 Allergies Allergy/AdvReac Type Severity Reaction Status Date / Time diclofenac Allergy NA Verified 02/02/25 19:27 varenicline (From Chantix) Allergy NA Verified 02/02/25 19:27 PFS ED PFS: Medical History (Updated 02/03/25 @ 00:37 by Earl Mcdermott, ) Atrial fibrillation Bacteriuria Hypertension Coronary artery disease History of penile cancer Status post bilateral lymphadenectomy inguinal, total penectomy with perineal urethrostomy at the [facility]. Chronic indwelling Garrison catheter Other urethral stricture, male, meatal Perineal urethrostomy with recurrent stricture currently managed with indwelling Garrison catheter. Surgical History H/O bilateral cataract extraction History of total right hip replacement (03/25/20) History of coronary artery stent placement History of appendectomy S/P tonsillectomy History of penectomy (2015) Radical penectomy, right inguinal lymph node dissection and perineal urethrostomy in April 2016 and left inguinal lymph node dissection September 2016 Family History Father Cancer Colon Mother Cancer Colon Social History Smoking and tobacco/nicotine status: current every day tobacco/nicotine user cigarettes Packs smoked per day: 1 Years cigarettes smoked: 54 [ Other cigarette details: Started at age 21] Quit status (tobacco/nicotine): has quit using Alcohol intake: never Substance/Drug Use: never Marital status: Current occupational status: retired Physical Exam Const: COMMON NORMALS: no acute distress GENERAL APPEARANCE: cooperative; not ill appearing and not frail appearing HENMT: COMMON NORMALS: normocephalic, atraumatic and Normal external nose present HEAD & SCALP: normocephalic and atraumatic FACE & SINUS: normal facial exam and face symmetric NOSE: Normal external nose present Eye: COMMON NORMALS: Equal, round and reactive pupils present and EOMs intact bilaterally PUPIL: Yes Equal, round and reactive pupils present Neck/C-Spine: GENERAL: Yes trachea midline Chest: CHEST: Yes Symmetrical chest wall rise Resp: COMMON NORMALS: normal respiratory effort, No retractions, No use of accessory muscles and clear to auscultation bilaterally AUSCULTATION: clear to auscultation bilaterally Cardio: COMMON NORMALS: regular rate and regular rhythm RATE: regular rate RHYTHM: regular rhythm GI: COMMON NORMALS: Normal to inspection, nondistended, normoactive bowel sounds present Extremity: COMMON NORMALS: no pedal edema Neuro: [place] COMA SCALE: document GCS findings [place] coma scale eye opening: Spontaneous [place] coma scale verbal response: Orientated [place] coma scale motor response: Obey commands [place] coma scale total score: 15 SENSORY EXAM: Yes extremities (intact) Psych: COMMON NORMALS: speech normal SPEECH: Yes normal speech Skin: COMMON NORMALS: no rashes or lesions noted GENERAL SKIN EXAM: no rashes or lesions noted Course Vital Signs: Vital signs: Vital Signs Temperature 98.0 F 02/02/25 19:08 Pulse Rate 64 02/03/25 01:11 Respiratory Rate 16 02/03/25 01:11 Blood Pressure 151/89 02/03/25 01:11 Pulse Oximetry 93 02/03/25 01:11 Oxygen Delivery Me thod Room Air 02/02/25 22:40 MDM - Recheck/Abnormal Lab/Rx Medical Decision Making Low blood pressures at home in a patient with chronic indwelling catheter. His platelet count is 88. He is on apixaban. His BMP is not remarkable. His urinalysis shows a mild urinary tract infection. This is not likely the cause of his hypotension. He is given a liter of fluid here. Blood pressures here are normal. His blood pressure did drop significantly on standing from sitting. This was prior to fluid bolus. He is on tamsulosin as well as metoprolol. Will stop the metoprolol as he has been bradycardic at times as well. Treat the urinary tract infection. Lab Data 02/02/25 19:25 02/02/25 19:25 Radiology Impressions Chest X-Ray 02/02/25 22:26 IMPRESSION: Minimal bibasilar atelectasis/scar. Laboratory Results WBC 8.22 10^3/uL (3.29-11.43) 02/02/25: RBC 4.65 10^6/uL (3.85-5.65) 02/02/25: Hgb 13.70 g/dL (11.27-16.99) 02/02/25 19: Hct 40.8 % (37-53) 02/02/25: MCV 87.7 fl (82-101) 02/02/25: MCH 29.5 pg (27-33) 02/02/25: MCHC 33.6 g/dL (30-55) 02/02/25: RDW 14.5 % (12.1-15.1) 02/02/25: Plt Count 88 10^3/cmm (157-399) L 02/02/25: MPV 11.8 fL (7.4-10.4) H 02/02/25 19: Neut % (Auto) 62.9 % 02/02/25: Lymph % (Auto) 25.3 % 02/02/25: [place] % (Auto) 10.5 % 02/02/25: Eos % (Auto) 0.4 % 02/02/25: Baso % (Auto) 0.5 % 02/02/25: Neut # (Auto) 5.18 10^3/uL (1.8-7.7) 02/02/25: Lymph # (Auto) 2.1 10^3/uL (0.8-4.8) 02/02/25: [place] # (Auto) 0.9 10^3/uL (0.2-0.9) 02/02/25: Eos # (Auto) 0.0 10^3/uL (0.0-0.8) 02/02/25: Baso # (Auto) 0.0 10^3/uL (0.0-0.1) 02/02/25: Nucleated RBC % (auto) 0 % 02/02/25: Nucleated RBCs # 0.0 /100WBC 02/02/25 19: Sodium 135 mmol/L (136-145) L 02/02/25:25 Potassium 3.9 mmol/L (3.5-5.1) 02/02/25 19:25 Chloride 96 mmol/L (98-107) L 02/02/25 19:25 Carbon Dioxide 25 mmol/L (22-29) 02/02/25 19:25 Anion Gap 17.9 (5-19) 02/02/25 19:25 BUN 12 mg/dL (8-23) 02/02/25 19:25 Creatinine 0.6 mg/dL (0.7-1.2) L 02/02/25 19:25 GFR Calculation Not Reportable 02/02/25: Glucose 84 mg/dL (65-115) 02/02/25:25 Calculated Osmolality 279 mOsm/kg (285-295) L 02/02/25: Lactic Acid 1.5 mmol/L (0.5-2.2) 02/02/25: Calcium 9.0 mg/dL (8.5-10.5) 02/02/25: Total Bilirubin 2.0 mg/dL (0.15-1.2) H 02/02/25: AST 15 U/L (0-40) 02/02/25: ALT 15 U/L (0-41) 02/02/25 19:25 Alkaline Phosphatase 56 U/L (40-130) 02/02/25: C-Reactive Protein 3.0 mg/L (0.0-4.9) 02/02/25: Total Protein 6.7 g/dL (6.6-8.7) 02/02/25: Albumin 4.2 g/dL (3.5-5.2) 02/02/25 19:25 Globulin 2.5 g/dL (1.3-4.6) 02/02/25 19:25 Urine Color Yellow (Yellow) 02/02/25 20:35 Urine Appearance Clear (CLEAR) 02/02/25 20: Urine pH 5.5 (5-7) 02/02/25 20:35 Ur Specific [place] 1.008 (1.005-1.030) 02/02/25 20:35 Urine Protein Negative (Negative) 02/02/25 20:35 Urine Glucose (UA) Negative (Normal) 02/02/25 20:35 Urine Ketones Trace (Negative) 02/02/25 20:35 Urine Blood Negative (Negative) 02/02/25 20:35 Urine Nitrate Positive (Negative) A 02/02/25 20:35 Urine Bilirubin Negative (Negative) 02/02/25 20:35 Urine Urobilinogen 0.2 mg/dL (Negative) 02/02/25 20:35 Ur Leukocyte Esterase 1+ (Negative) A 02/02/25 20:35 Urine RBC 0-2 /hpf (0-2) 02/02/25 20:35 Urine WBC 11-20 /hpf (0-5) H 02/02/25 20:35 Ur Squamous Epith Cells 0-5 /hpf (0-5) 02/02/25 20:35 Amorphous Sediment Not Reportable 02/02/25 20:35 Urine Bacteria 4+ /hpf (NONE) H 02/02/25 20:35 Hyaline Casts 0-4 /lpf H 02/02/25 20:35 All radiology interpretation(s) finalized by discharge Discharge Plan Discharge Patient Disposition: Home Clinical Impression: Acute UTI, Bradycardia Prescriptions: New cefdinir 300 mg capsule 300 mg PO BID Qty: 14 0RF No Action finasteride 5 mg tablet 5 mg PO DAILY cholecalciferol (vitamin D3) 2,000 unit tablet 2,000 unit PO DAILY atorvastatin 40 mg tablet 40 mg PO DAILY tamsulosin 0.4 mg capsule 0.4 mg PO DAILY ascorbic acid (vitamin C) 500 mg tablet 500 mg PO DAILY omega-3 fatty acids 1,000 mg capsule 1,000 mg PO BID loratadine [Allergy Relief (loratadine)] 10 mg tablet 10 mg PO DAILY Centrum Silver Men [phone] mcg tablet 1 tab PO DAILY turmeric root extract 500 mg capsule 500 mg PO DAILY fluticasone propionate 50 mcg/actuation spray,suspension 1 spray intranasal DAILY PRN (Reason: nasal congestion) Rx Instructions: administer into each nostril apixaban 5 mg tablet 5 mg PO BID Qty: 180 3RF clopidogrel 75 mg tablet 75 mg PO DAILY Qty: 90 3RF Spiriva with HandiHaler 18 mcg capsule, w/inhalation device 1 cap inhalation DAILY Qty: 60 0RF Rx Instructions: puncture 1 cap using device; one dose = 2 inhalations metoprolol succinate 100 mg tablet extended release 24 hr 50 mg PO DAILY Qty: 90 3RF meloxicam 15 mg Tablet 15 mg PO DAILY Discharge Orders: Discharge ED (Routine); Ordered 02/03/25 Ordered By: Earl Mcdermott Referrals: Ming Flores DO [Primary Care Provider, [facility]] - 1-3 days Patient Instructions: Urinary Tract Infection in Men (ED), Bradycardia (ED), Opioid Safety, Pain Management, Patient Portal & Wilbert Instructions Activity Restrictions/Additional Instructions: Stop your metoprolol as we discussed. Check your blood pressure and heart rate twice daily. If your blood pressure is consistently above 140/90, you may start your metoprolol again at 12.5 mg. Do not take metoprolol if heart rate is consistently below 55-60. Hydrate. Antibiotics as directed for UTI. Follow-up with your doctor early next week. 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
--- NOTE | 2025-02-02 22:26 | XRR_ITS ---
PROCEDURE INFORMATION: Exam: XR Chest Exam date and time: 02/02/2025 10:42 PM Age: 80 years old Clinical indication: Other: General weakness/hypotension; Prior surgery; Surgery date: 6+ months; Surgery type: Coronary stent; Hypotension with general weakness; Additional info: Gen weakness TECHNIQUE: Imaging protocol: Radiologic exam of the chest. Views: 1 view. COMPARISON: CT angio abdomen pelvis [id number] 03/20/2024 3:18 PM FINDINGS: Lungs: Minimal bibasilar atelectasis/scar. No consolidation. Pleural spaces: Unremarkable. No pleural effusion. No pneumothorax. Heart/Mediastinum: Unremarkable. No cardiomegaly. Bones/joints: Chronic healed left posterolateral rib fractures. XR/XR chest 1V portable [id number] IMPRESSION: Minimal bibasilar atelectasis/scar.
[2025-02-02 22:39] VITALS: BP 124/85; BP 148/87; BP 154/96; PULSE 63; PULSE 68; PULSE 73
[2025-02-02 22:40] VITALS: BP 124/85; PULSE 73; RESP 16; O2SAT 96
--- NOTE | 2025-02-02 22:43 | ECG_ITS ---
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 Measurements Intervals [place] Rate: 64 P: 0 [place]: 0 QRS: 59 QRSD: 119 T: -78 QT: 456 QTc: 473 Interpretive Statements ATRIAL FLUTTER/TACHYCARDIA WITH ABERRANT CONDUCTION OR VENTRICULAR PREMATURE COMPLEXES INFERIOR MYOCARDIAL INFARCTION , OF INDETERMINATE AGE [40+ ms Q WAVE AND/OR ST/T ABNORMALITY IN II/aVF] ANTEROLATERAL MYOCARDIAL INFARCTION , PROBABLY OLD [40+ ms Q WAVE IN I/aVL/V3-V6] Compared to ECG 10/08/2021 17:33:53 Ventricular premature complex(es) now present Aberrant conduction of supraventricular beat(s) now present Sinus rhythm no longer present First degree AV block no longer present Myocardial infarct finding still present Electronically Signed On 02-03-2025 08:41:15 CDT by Sean Ernst M.D. [email or web address]
[2025-02-02 22:48] LABS: Lactic Sepsis W/Reflex 1.5 mmol/L (0.5-2.2)
[2025-02-02] MEDS: cefTRIAXone 1,000 mg SDV 1000 MG IVP (23:18)
[2025-02-03 01:11] VITALS: BP 151/89; PULSE 64; RESP 16; O2SAT 93
== END 2025-02-03 01:06 | disposition home or self-care (01) ==
PROVIDERS: Emergency Provider Emergency Medicine; PCP Family Medicine
DX: N39.0 Urinary tract infection, site not specified (principal); R00.1 Bradycardia, unspecified; Z79.02 Long term (current) use of antithrombotics/antiplatelets; F17.210 Nicotine dependence, cigarettes, uncomplicated; I25.10 Atherosclerotic heart disease of native coronary artery without angina pectoris; Z85.49 Personal history of malignant neoplasm of other male genital organs
CPT/HCPCS: 36415; 71045; 80053; 81001; 83605; 85025; 86140; 87077; 87086; 87186; 93005; 96361; 96374; 99285; J0696; J7030; J9999

== ENCOUNTER → 2025-02-06 13:42 | Outpatient (BNVA) | payer MEDICARE, OTHER, SELFPAY | PROVIDERS: PCP Family Medicine; Visit Provider Nurse Practitioner Family | DX: I25.10 Atherosclerotic heart disease of native coronary artery without angina pectoris (principal); I11.0 Hypertensive heart disease with heart failure; I50.22 Chronic systolic (congestive) heart failure; I71.40 Abdominal aortic aneurysm, without rupture, unspecified; E78.5 Hyperlipidemia, unspecified; J44.9 Chronic obstructive pulmonary disease, unspecified; Z79.01 Long term (current) use of anticoagulants; Z95.5 Presence of coronary angioplasty implant and graft; F17.210 Nicotine dependence, cigarettes, uncomplicated; I50.20 Unspecified systolic (congestive) heart failure | CPT/HCPCS: 99213 ==

== ENCOUNTER 2025-03-08 12:35 | Outpatient (CLI) | payer MEDICARE, OTHER, SELFPAY ==
--- NOTE | 2025-03-08 12:45 | USCV_ITS ---
Iglesia Hannah Age: 80 Gender: M : 1945 Exam Date: 03/08/2025 12:54 Ordering Phys: Maria Guadalupe Mario NP Technologist: Exam Location: [facility] [place] Indication: murmur BP: 120 / 65 HR: 73 Rhythm: Sinus Technical Quality: Adequate MEASUREMENTS (Male / Female) Normal Values 2D ECHO LV Diastolic Diameter PLAX 4.5 cm 4.2 - 5.9 / 3.9 - 5.3 cm IVS Diastolic Thickness 1.3 cm 0.6 - 1.0 / 0.6 - 0.9 cm IVS Systolic Thickness 1.7 cm LVPW Diastolic Thickness 1.4 cm 0.6 - 1.0 / 0.6 - 0.9 cm LVPW Systolic Thickness 1.7 cm LVOT Diameter 2.1 cm LV Ejection Fraction 2D Teich 68.8 % LV Ejection Fraction MOD 4C 54.0 % LV Ejection Fraction MOD 2C 62.4 % LV Ejection Fraction 2C AL 62.1 % LA Diameter 4.4 cm RA Systolic Volume 4C AL 70.9 ml RA Systolic Volume 4C MOD 66.4 ml LA Sys Volume AL 93.0 cm cubed LA Sys Volume Index AL 39.1 cm cubed/m squared Aorta at Sinotubular Diameter 3.5 cm IVC Diameter 2.3 cm M-MODE LA Ao Ratio MM 1.2 AV Cusp Separation MM 0.9 cm DOPPLER AV Peak Velocity 228.7 cm/s LVOT Peak Velocity 110.0 cm/s AV Area Cont Eq vti 2.2 cm squared AV Area Cont Eq pk 1.6 cm squared MV Peak Velocity 192.0 cm/s MV Area PHT 3.6 cm squared Mitral E to A Ratio 1.6 TR Peak Velocity 381.0 cm/s TR Peak Gradient 58.1 mmHg PV Peak Velocity 136.0 cm/s FINDINGS Left Ventricle Normal left ventricular size and systolic function, EF 60-65%. No regional wall motion abnormalities. Right Ventricle Normal right ventricular size and systolic function. Right Atrium Normal right atrial size. Left Atrium Normal left atrial size. Mitral Valve Moderate mitral annular calcification. Mild mitral stenosis with mean gradient of 4.7mmHg. Mild mitral regurgitation Aortic Valve Thickened aortic valve. No aortic valve stenosis. Mild aortic regurgitation Tricuspid Valve Mild tricuspid regurgitation. RVSP is 55-60mmHg. 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 Mild mitral stenosis Mild aortic regurgitation Mild tricuspid regurgitation. Moderate pulmonary hypertension Mildly dilated ascending aorta with diameter of 3.5cm IVC is dilated Sean Ernst MD (Electronically Signed) Final Date: 10 March 2025 00:59 S
== END 2025-03-08 12:36 | disposition home or self-care (01) ==
LOC: RAD 12:37
PROVIDERS: PCP Family Medicine; Visit Provider Nurse Practitioner Family
DX: I50.20 Unspecified systolic (congestive) heart failure (principal); I34.81 Nonrheumatic mitral (valve) annulus calcification; I34.0 Nonrheumatic mitral (valve) insufficiency; I35.8 Other nonrheumatic aortic valve disorders; I35.1 Nonrheumatic aortic (valve) insufficiency; I07.1 Rheumatic tricuspid insufficiency; I27.20 Pulmonary hypertension, unspecified; I77.810 Thoracic aortic ectasia; R93.1 Abnormal findings on diagnostic imaging of heart and coronary circulation
CPT/HCPCS: 93306

== ENCOUNTER → 2025-04-24 13:26 | Outpatient (BNVA) | payer MEDICARE, OTHER, SELFPAY | PROVIDERS: PCP Family Medicine; Visit Provider Internal Medicine Cardiovascular Disease | DX: I25.10 Atherosclerotic heart disease of native coronary artery without angina pectoris (principal); I48.91 Unspecified atrial fibrillation; I71.40 Abdominal aortic aneurysm, without rupture, unspecified; E78.5 Hyperlipidemia, unspecified; R00.1 Bradycardia, unspecified; I27.20 Pulmonary hypertension, unspecified; I11.0 Hypertensive heart disease with heart failure; I50.22 Chronic systolic (congestive) heart failure; F17.210 Nicotine dependence, cigarettes, uncomplicated | CPT/HCPCS: 99214 ==

== ENCOUNTER 2025-07-10 13:49 | Oncology outpatient (recurring) (ONCR) | payer MEDICARE, OTHER, SELFPAY ==
[2025-07-10 14:14] LABS: Hematocrit 43.0 % (37-53); Hemoglobin 14.30 g/dL (11.27-16.99); Mean Corpuscular HGB Conc 33.3 g/dL (30-55); Mean Corpuscular Hemoglobin 29.2 pg (27-33); Mean Corpuscular Volume 87.8 fl (82-101); Nucleated Red Blood Cells % 0 %; Platelet Count 86 10^3/cmm (157-399); Red Blood Count 4.90 10^6/uL (3.85-5.65); White Blood Count 7.93 10^3/uL (3.29-11.43)
[2025-07-10 14:31] LABS: Alanine Aminotransferase 19 U/L (0-41); Albumin Level 4.6 g/dL (3.5-5.2); Alkaline Phosphatase 64 U/L (40-130); Anion Gap 15.5 (5-19); Aspartate Amino Transferase 19 U/L (0-40); Blood Urea Nitrogen 11 mg/dL (8-23); Calcium 9.2 mg/dL (8.5-10.5); Carbon Dioxide 28 mmol/L (22-29); Chloride 100 mmol/L (98-107); Globulin 2.3 g/dL (1.3-4.6); Glucose 95 mg/dL (65-115); Osmolality Calculated 287 mOsm/kg (285-295); Potassium 4.5 mmol/L (3.5-5.1); Sodium 139 mmol/L (136-145); Total Protein 6.9 g/dL (6.6-8.7)
== END 2025-07-11 23:59 | disposition home or self-care (01) ==
PROVIDERS: PCP Family Medicine; Visit Provider Internal Medicine Medical Oncology
DX: Z08 Encounter for follow-up examination after completed treatment for malignant neoplasm (principal); Z85.49 Personal history of malignant neoplasm of other male genital organs; I25.10 Atherosclerotic heart disease of native coronary artery without angina pectoris; F17.210 Nicotine dependence, cigarettes, uncomplicated; D69.6 Thrombocytopenia, unspecified
CPT/HCPCS: 80053; 85025; 99214